=== PATIENT | female | born 1965 | race Caucasian/White ===

== ENCOUNTER 2020-05-21 16:29 | Outpatient (REF) | payer BC, SELFPAY ==
--- NOTE | 2020-05-21 | MM_ITS ---
EXAMINATION: MM SCREENING DIGITAL BREAST TOMOSYNTHESIS, BILATERAL CLINICAL INFORMATION: Screening. Asymptomatic. The lifetime risk of breast cancer based on the Tyrer-Cuzick Model is 14%. COMPARISON: Mammography: 05/16/2019, 05/13/2018, 05/04/2017, 04/12/2016 TECHNIQUE: Digital breast tomosynthesis is performed in both the craniocaudal and mediolateral oblique views along with computer-aided detection (CAD). Synthesized 2D images are generated from the tomosynthesis. FINDINGS: There are scattered areas of fibroglandular density (ACR BI-RADS breast composition Category b). There is fine fibronodular parenchymal pattern. Again, there are fibrocystic changes with 2 oval circumscribed masses central anterior medial left breast, the larger approximately 1.1 x 1.3 cm. There is no interval significant mass or architectural abnormality or abnormal calcifications. The axilla and skin contours are unremarkable. MM/MM tomosynthesis screening BI IMPRESSION: No significant changes from prior study. ASSESSMENT: BI-RADS 2: Benign RECOMMENDATION: Routine annual mammography screening. This patient's information was entered into a reminder system with a target due date for their next mammogram.
== END 2020-05-21 16:30 | disposition home or self-care (01) ==
LOC: HO.MAMMO 16:29
PROVIDERS: PCP Family Medicine; Visit Provider Family Medicine
DX: Z12.31 Encounter for screening mammogram for malignant neoplasm of breast (principal)
CPT/HCPCS: 77063; 77067

== ENCOUNTER 2021-01-04 14:13 | Outpatient (REF) | payer BC, SELFPAY ==
[2021-01-04 15:26] LABS: MANUAL DIFF FLAG NO
[2021-01-04 15:32] LABS: Basophils Absolute Auto 0.1 X10*3/uL (0.0-0.2); Basophils Percent Auto 1.2 % (0-2); Eosinophils Absolute Auto 0.1 X10*3/uL (0.0-0.4); Hematocrit 35.8 % (37-47); Hemoglobin 11.6 g/dl (12.0-16.0); Lymphocytes Absolute Auto 1.9 X10*3/uL (1.2-4.9); Lymphocytes Percent Auto 37.1 % (20-40); Mean Corpuscular HGB Conc 32.4 g/dl (31.0-35.0); Mean Corpuscular Hemoglobin 31.4 pg (27.0-33.0); Mean Corpuscular Volume 96.8 fL (80-98); Mean Platelet Volume 9.7 fL (9.4-12.3); Monocytes Absolute Auto 0.5 X10*3/uL (0.1-1.2); Neutrophils Absolute Auto 2.5 X10*3/uL (2.0-8.3); Neutrophils Percent Auto 50.7 % (45-73); Platelet Count 252 X10*3/uL (160-400); Red Cell Distribution Width 12.7 % (11.0-16.0)
[2021-01-04 15:59] LABS: Anion Gap 11 (12-20); Blood Urea Nitrogen 9 mg/dL (9-16); Calcium 9.3 mg/dL (8.4-10.2); Carbon Dioxide 27 mmol/L (22-29); Chloride 106 mmol/L (96-108); Estimated Glomerular Filt Rate > 60; Glucose Random 86 mg/dL (60-115); Potassium 3.9 mmol/L (3.3-5.1); Sodium 140 mmol/L (135-145)
[2021-01-04 16:04] LABS: Alanine Aminotransferase 8 U/L (0-31); Albumin Level 4.3 g/dL (3.5-5.0); Alkaline Phosphatase 72 U/L (39-117); Aspartate Amino Transferase 16 U/L (5-31); Bilirubin Direct 0.2 mg/dL (0.0-0.5); Bilirubin Total 0.5 mg/dL (0.0-1.0); Total Protein 6.8 g/dL (6.5-8.0)
[2021-01-04 16:25] LABS: Vitamin B12 277 pg/mL (200-900)
[2021-01-05 13:32] LABS: Lyme Abs Screen <0.90 index
[2021-01-05 14:21] LABS: Ceruloplasmin 28 mg/dL (18-53)
[2021-01-07 03:42] LABS: ~HepC Num1 0.37 S/CO (0.00-0.79); ~Hepatitis C Antibody Nonreactive (Nonreactive)
[2021-01-07 17:17] LABS: TS Negative Control Passed; TS Panel A 0; TS Panel B 0; TS Positive Control Passed; TSpotTB Negative (SeeBelow)
[2021-01-08 12:42] LABS: Anti Nuclear Antibody Screen NEGATIVE (NEGATIVE)
[2021-01-08 22:47] LABS: Angiotensin Converting Enzyme 21 U/L (9-67)
== END 2021-01-04 14:14 | disposition home or self-care (01) ==
LOC: HO.LAB 14:13
PROVIDERS: Absent Provider Psychiatry & Neurology Neurology; PCP Family Medicine; Visit Provider Family Medicine
DX: Z01.84 Encounter for antibody response examination (principal); Z11.59 Encounter for screening for other viral diseases; R20.0 Anesthesia of skin
CPT/HCPCS: 36415; 80048; 80076; 82164; 82390; 82607; 85025; 86038; 86039; 86481; 86617; 86618; 86787; 86803

== ENCOUNTER 2021-06-12 16:07 | Outpatient (REF) | payer BC, SELFPAY ==
[2021-06-12 16:50] LABS: MANUAL DIFF FLAG NO
[2021-06-12 17:49] LABS: Basophils Absolute Auto 0.1 X10*3/uL (0.0-0.2); Basophils Percent Auto 0.8 % (0-2); Eosinophils Absolute Auto 0.2 X10*3/uL (0.0-0.4); Eosinophils Percent Auto 2.3 % (0-4); Hematocrit 35.6 % (37.0-47.0); Hemoglobin 11.4 g/dl (12.0-16.0); Imm Gran Abs Auto 0.02 X10*3/uL (0.00-0.03); Imm Gran Pct Auto 0.3 % (0.0-0.4); Lymphocytes Absolute Auto 1.8 X10*3/uL (1.2-4.9); Mean Corpuscular Hemoglobin 31.1 pg (27.0-33.0); Mean Corpuscular Volume 97.3 fL (80.0-98.0); Mean Platelet Volume 10.4 fL (9.4-12.3); Monocytes Absolute Auto 0.5 X10*3/uL (0.1-1.2); Monocytes Percent Auto 7.1 % (2-11); Neutrophils Percent Auto 61.5 % (45-73); Platelet Count 248 X10*3/uL (160-400); Red Blood Count 3.66 X10*6/uL (4.20-5.50); Red Cell Distribution Width 11.9 % (11.0-16.0); White Blood Count 6.5 X10*3/uL (4.8-10.8)
[2021-06-12 18:13] LABS: Alanine Aminotransferase 10 U/L (0-31); Albumin Level 4.3 g/dL (3.5-5.0); Alkaline Phosphatase 61 U/L (39-117); Anion Gap 13 (12-20); Aspartate Amino Transferase 18 U/L (5-31); Bilirubin Total 0.3 mg/dL (0.0-1.0); Blood Urea Nitrogen 12 mg/dL (9-16); Calcium 9.1 mg/dL (8.4-10.2); Carbon Dioxide 26 mmol/L (22-29); Chloride 105 mmol/L (96-108); Estimated Glomerular Filt Rate > 60; Glucose Random 85 mg/dL (60-115); Sodium 140 mmol/L (135-145); Total Protein 6.6 g/dL (6.5-8.0)
[2021-06-12 18:34] LABS: Vitamin D 25-OH Total 40.4 ng/mL (>30)
[2021-06-12 18:45] LABS: Folate 14.3 ng/mL (> or = 4.0); Vitamin B12 256 pg/mL (200-900)
[2021-06-13 08:33] LABS: HBc Num1 0.08 S/CO (0.00-0.79); HBsAGNum1 0.17 S/CO (0.00-0.99); Hepatitis B Core Antibody Nonreactive (Nonreactive); Hepatitis B Surface Antigen Negative (Negative)
[2021-06-14 13:50] LABS: IgA 161 mg/dL (47-310); IgG 1005 mg/dL (600-1640); IgM 66 mg/dL (50-300)
[2021-06-14 15:25] LABS: Antibody to SS-A Antigen <1.0 NEG AI (<1.0 NEG); Antibody to SS-B Antigen <1.0 NEG AI (<1.0 NEG)
[2021-06-15 10:32] LABS: TS Negative Control Passed; TS Panel A 0; TS Panel B 0; TS Positive Control Passed; TSpotTB Negative (SeeBelow)
[2021-06-20 03:02] LABS: JCV Antibody POSITIVE
== END 2021-06-12 16:08 | disposition home or self-care (01) ==
LOC: HO.LAB 16:07
PROVIDERS: PCP Family Medicine; Visit Provider Student in an Organized Health Care Education/Training Program
DX: G35 Multiple sclerosis (principal); G37.9 Demyelinating disease of central nervous system, unspecified; Z79.899 Other long term (current) drug therapy
CPT/HCPCS: 36415; 80053; 82306; 82607; 82746; 82784; 85025; 86235; 86255; 86362; 86481; 86704; 86705; 86711; 86787; 87340

== ENCOUNTER 2021-06-17 16:06 | Outpatient (REF) | payer BC, SELFPAY ==
--- NOTE | ~2021-06-17 | MM_ITS ---
EXAMINATION: MM SCREENING DIGITAL BREAST TOMOSYNTHESIS, BILATERAL CLINICAL INFORMATION: Screening. Asymptomatic. Family history breast cancer, sister. The lifetime risk of breast cancer based on the Tyrer-Cuzick Model is 28%. COMPARISON: Mammography: 05/21/2020, 05/16/2019, 05/13/2018, 05/04/2017, 04/12/2016, 03/31/2015, 02/24/2014, 02/08/2013; left breast ultrasound 02/24/2014. TECHNIQUE: Digital breast tomosynthesis is performed in both the craniocaudal and mediolateral oblique views along with computer-aided detection (CAD). Synthesized 2D images are generated from the tomosynthesis. FINDINGS: There are scattered areas of fibroglandular density (ACR BI-RADS breast composition Category b). The left breast has chronic benign nodularity 9:00 periareolar, slightly decreased in size from remote prior exams. The more dominant nodule central 9:00 position 5 cm from nipple is similar in size to prior study. The posterior wall is ill-defined on tomography, possibly related to superimposed tissue. Patient will be recalled to further characterize. The remainder of the bilateral breasts appears stable from prior exams. There is no interval significant mass or architectural abnormality or abnormal calcifications. The axilla and skin contours are unremarkable. MM/MM tomosynthesis screening BI IMPRESSION: 1. Left: Nodule central 9:00 position 5 cm from nipple with ill-defined posterior wall on tomography. 2. Right: No mammographic evidence of malignancy. ASSESSMENT: BI-RADS 0: Incomplete - Need Additional Imaging Evaluation RECOMMENDATION: 1. Additional views of the left breast (spot CC, spot LM). 2. Targeted ultrasound left breast. 3. Radiology department staff will contact the patient for additional imaging. This patient's information was entered into a reminder system with a target due date for their next mammogram.
== END 2021-06-17 16:07 | disposition home or self-care (01) ==
LOC: HO.MAMMO 16:06
PROVIDERS: Visit Provider Family Medicine
DX: Z12.31 Encounter for screening mammogram for malignant neoplasm of breast (principal)
CPT/HCPCS: 77063; 77067

== ENCOUNTER 2021-06-20 10:55 | Outpatient (REF) | payer BC, SELFPAY ==
[2021-06-20 13:46] LABS: Influenza A PCR NEGATIVE (Negative); Influenza B PCR NEGATIVE (Negative); Resp Syncy Virus RNA Qual PCR NEGATIVE (Negative); SARS COV2 PCR INHOUSE NEGATIVE (Negative)
== END 2021-06-20 10:56 | disposition home or self-care (01) ==
LOC: HO.LAB 10:55
PROVIDERS: PCP Family Medicine; Visit Provider Family Medicine
DX: Z20.822 Contact with and (suspected) exposure to COVID-19 (principal); R05.9 Cough, unspecified
CPT/HCPCS: 0241U; C9803

== ENCOUNTER 2021-06-27 14:23 | Outpatient (REF) | payer BC, SELFPAY ==
--- NOTE | ~2021-06-27 | MM_ITS ---
EXAMINATION: MM DIAGNOSTIC DIGITAL BREAST TOMOSYNTHESIS, LEFT US DIAGNOSTIC ULTRASOUND BREAST, LEFT CLINICAL INFORMATION: Recall from screening for otherwise chronic nodule 9:00 position 5 cm from nipple with ill-defined posterior wall on tomography. Family history breast cancer, sister. TC score 28%. COMPARISON: Mammography: 05/21/2020 prior exams dating back to 2014 including left breast ultrasound 02/25/2020. TECHNIQUE: Digital breast tomosynthesis is performed. 2D images are generated from the tomosynthesis. The following views are obtained: Spot CC, spot LM x2. Ultrasound left breast is targeted to the medial breast. Patient is imaged supine and left posterior oblique. Grayscale imaging and color Doppler are performed without and with harmonics. FINDINGS: There are scattered areas of fibroglandular density (ACR BI-RADS breast composition Category b). The additional views shows the chronic smooth nodule anterior mid medial breast. No spiculation on additional views. Ultrasound demonstrates the nodule to measure 1.2 x 0.9 x 1.0 cm. Margins are smooth. There is geographic internal echogenicity within half of the nodule without associated color flow. The appearance is suggestive of a benign acorn cysts/apocrine metaplasia. There are 2 smaller acorn cysts periareolar medial left breast, the larger measures only 0.8 x 0.6 cm compared with prior ultrasound measurement 1.0 x 0.8 cm. The smaller is 0.5 x 0.4 cm. Results are discussed with the patient at time of visit. Findings are consistent with benign-appearing acorn cyst. Management plan is for short interval follow-up left breast ultrasound in 6 months. MM/MM tomosynthesis added views L IMPRESSION: Benign-appearing acorn cyst measuring 1.2 cm. No associated color flow. ASSESSMENT: BI-RADS 3: Probably Benign RECOMMENDATION: Ultrasound left breast in 6 months. This patient's information was entered into a reminder system with a target due date for their next mammogram.
== END 2021-06-27 14:24 | disposition home or self-care (01) ==
LOC: HO.MAMMO 14:23
PROVIDERS: Visit Provider Family Medicine
DX: N60.02 Solitary cyst of left breast (principal)
CPT/HCPCS: 76642; 77061; 77065

== ENCOUNTER 2021-12-25 13:48 | Outpatient (REF) | payer BC, SELFPAY ==
--- NOTE | ~2021-12-25 | US_ITS ---
EXAMINATION: US DIAGNOSTIC ULTRASOUND BREAST, LEFT CLINICAL INFORMATION: Follow-up chronic nodule 9:00 left breast with acorn cyst appearance on prior ultrasound. Family history breast cancer, sister. COMPARISON: Ultrasound left breast 06/27/2021, 02/24/2014. Mammography 06/27/2021 and prior mammography dating back to 02/16/2014. TECHNIQUE: Ultrasound left breast is targeted to the inner breast. Grayscale imaging and color Doppler are performed without and with harmonics. FINDINGS: The chronic nodule 9:00 position proximally 4-6 cm from nipple is similar in size and contour to prior ultrasound. Current measurements are 1.2 x 0.8 x 1.0 cm and prior ultrasound measurements 1.2 x 0.9 x 1.0 cm. There are some low-level internal echoes without associated peripheral or internal color flow. Margins are smooth. Difficult to perceive increased or decreased through transmission of sound. Appearance is suggestive of a foam cyst. Remote ultrasound 2013 shows simple cyst at this site measuring 1.0 x 0.7 cm. Smaller nodularity periareolar left breast is again seen under 6 mm. There is no interval architectural abnormality. Results are discussed with the patient at time of visit. US/US breast LT limited IMPRESSION: -Avascular nodule 9:00 position 4-6 cm from nipple stable in size, 1.2 cm. No color flow. ASSESSMENT: BI-RADS 3: Probably Benign RECOMMENDATION: Ultrasound left breast at time of bilateral annual diagnostic mammography, due in 6 months. This patient's information was entered into a reminder system with a target due date for their next mammogram.
== END 2021-12-25 13:49 | disposition home or self-care (01) ==
LOC: HO.MAMMO 13:48
PROVIDERS: PCP Family Medicine; Visit Provider Family Medicine
DX: N63.25 Unspecified lump in the left breast, overlapping quadrants (principal)
CPT/HCPCS: 76642

== ENCOUNTER 2022-01-03 11:46 | Outpatient (REF) | payer BC, SELFPAY ==
[2022-01-03 13:41] LABS: MANUAL DIFF FLAG NO
[2022-01-03 13:44] LABS: Basophils Percent Auto 0.5 % (0-2); Eosinophils Absolute Auto 0.2 X10*3/uL (0.0-0.4); Eosinophils Percent Auto 2.9 % (0-4); Hematocrit 38.7 % (37.0-47.0); Hemoglobin 12.6 g/dl (12.0-16.0); Imm Gran Abs Auto 0.02 X10*3/uL (0.00-0.03); Imm Gran Pct Auto 0.4 % (0.0-0.4); Lymphocytes Absolute Auto 1.4 X10*3/uL (1.2-4.9); Lymphocytes Percent Auto 26.3 % (20-40); Mean Corpuscular HGB Conc 32.6 g/dl (31.0-35.0); Mean Corpuscular Hemoglobin 31.2 pg (27.0-33.0); Mean Corpuscular Volume 95.8 fL (80.0-98.0); Mean Platelet Volume 9.9 fL (9.4-12.3); Monocytes Absolute Auto 0.5 X10*3/uL (0.1-1.2); Monocytes Percent Auto 8.2 % (2-11); Neutrophils Absolute Auto 3.4 x10*3/uL (2.0-8.3); Neutrophils Percent Auto 61.7 % (45-73); Platelet Count 278 X10*3/uL (160-400); Red Blood Count 4.04 X10*6/uL (4.20-5.50); Red Cell Distribution Width 12.6 % (11.0-16.0); White Blood Count 5.5 X10*3/uL (4.8-10.8)
[2022-01-03 14:24] LABS: Alanine Aminotransferase 12 U/L (0-31); Albumin Level 4.4 g/dL (3.5-5.0); Alkaline Phosphatase 69 U/L (39-117); Aspartate Amino Transferase 17 U/L (5-31); Bilirubin Direct 0.2 mg/dL (0.0-0.5); Bilirubin Total 0.4 mg/dL (0.0-1.0); Blood Urea Nitrogen 13 mg/dL (9-16); Estimated Glomerular Filt Rate > 60
[2022-01-03 14:38] LABS: Folate 13.9 ng/mL (> or = 4.0); Vitamin B12 730 pg/mL (200-900)
[2022-01-06 21:51] LABS: Transglutaminase Ab IgG <1.0 U/mL; Transglutaminase IgA 207.7 U/mL
== END 2022-01-03 11:47 | disposition home or self-care (01) ==
LOC: HO.10HDL 11:46
PROVIDERS: Absent Provider Family Medicine; Visit Provider Student in an Organized Health Care Education/Training Program
DX: R19.7 Diarrhea, unspecified (principal)
CPT/HCPCS: 36415; 80076; 82565; 82607; 82746; 84520; 85025; 86052; 86364

== ENCOUNTER 2022-04-11 12:37 | Outpatient (REF) | payer BC, SELFPAY ==
--- NOTE | ~2022-04-11 | XR_ITS ---
EXAMINATION: XR CHEST CLINICAL INFORMATION: Cough and SOB. COMPARISON: None TECHNIQUE: 2 views of the chest were obtained. FINDINGS: No significant abnormality is noted involving the heart, lungs, mediastinum, bony thorax or soft tissues. XR/XR chest 2V IMPRESSION: Unremarkable chest examination.
== END 2022-04-11 12:38 | disposition home or self-care (01) ==
LOC: HO.XRAY 12:37
PROVIDERS: PCP Family Medicine; Visit Provider Family Medicine
DX: R05.9 Cough, unspecified (principal); R06.02 Shortness of breath
CPT/HCPCS: 71046

== ENCOUNTER 2022-06-05 14:21 | Outpatient (REF) | payer BC, SELFPAY ==
--- NOTE | ~2022-06-05 | MM_ITS ---
EXAMINATION: MM DIAGNOSTIC DIGITAL BREAST TOMOSYNTHESIS, BILATERAL US DIAGNOSTIC ULTRASOUND BREAST, LEFT CLINICAL INFORMATION: Due for yearly. Also follow-up probable benign acorn cyst anterior central 9:00 left breast. Family history breast cancer, sister. TC score 25%. COMPARISON: Mammography: 06/27/2021, 06/17/2021 (BI-RADS 0), 05/21/2020, 05/16/2019, 05/13/2018; left breast ultrasound 12/25/2021 and 06/27/2021. TECHNIQUE: Digital breast tomosynthesis is performed in both the craniocaudal and mediolateral oblique views along with computer-aided detection (CAD). Synthesized 2D images are generated from the tomosynthesis. Ultrasound left breast is targeted to the central inner breast using grayscale imaging and color Doppler without and with harmonics. FINDINGS: There are scattered areas of fibroglandular density (ACR BI-RADS breast composition Category b). Parenchymal pattern is similar to prior exams. There is chronic nodule central anterior medial left breast. Smaller periareolar anterior medial cyst left breast is slightly decreased in size over time. There is no architectural abnormality or interval significant mass or abnormal calcifications. The axilla and skin contours are unremarkable. Ultrasound demonstrates stable acorn cyst 9:00 central anterior breast approximately 3 cm from nipple with overall dimensions approximately 1.3 x 0.8 x 1.0 cm similar to prior exams. Again, there is geographic internal avascular echogenicity. Outer margins are smooth and there is no associated color flow. The cyst will be reassessed again at time of annual bilateral mammography, due in 12 months, to conclude long-term surveillance. Results are discussed with the patient at time of visit. MM/MM tomosynthesis diagnostic BI IMPRESSION: -Mammography shows no significant changes from prior studies. -Ultrasound demonstrates stable benign-appearing foam cyst central anterior medial left breast. ASSESSMENT: BI-RADS 3: Probably Benign RECOMMENDATION: Diagnostic mammography and left breast ultrasound at time of next annual exam, due in 12 months. This patient's information was entered into a reminder system with a target due date for their next mammogram.
== END 2022-06-05 14:22 | disposition home or self-care (01) ==
LOC: HO.MAMMO 14:21
PROVIDERS: PCP Family Medicine; Visit Provider Family Medicine
DX: N63.25 Unspecified lump in the left breast, overlapping quadrants (principal)
CPT/HCPCS: 76642; 77062; 77066

== ENCOUNTER 2022-07-21 08:47 | Outpatient (REF) | payer BC, SELFPAY ==
[2022-07-21 11:06] LABS: MANUAL DIFF FLAG NO
[2022-07-21 11:17] LABS: Basophils Absolute Auto 0.1 X10*3/uL (0.0-0.2); Basophils Percent Auto 1.2 % (0-2); Eosinophils Absolute Auto 0.2 X10*3/uL (0.0-0.4); Eosinophils Percent Auto 5.6 % (0-4); Hematocrit 37.5 % (37.0-47.0); Hemoglobin 12.4 g/dl (12.0-16.0); Imm Gran Abs Auto 0.01 X10*3/uL (0.00-0.03); Imm Gran Pct Auto 0.2 % (0.0-0.4); Lymphocytes Absolute Auto 1.4 X10*3/uL (1.2-4.9); Lymphocytes Percent Auto 32.9 % (20-40); Mean Corpuscular HGB Conc 33.1 g/dl (31.0-35.0); Mean Corpuscular Hemoglobin 31.2 pg (27.0-33.0); Mean Corpuscular Volume 94.5 fL (80.0-98.0); Mean Platelet Volume 9.9 fL (9.4-12.3); Monocytes Absolute Auto 0.4 X10*3/uL (0.1-1.2); Monocytes Percent Auto 10.3 % (2-11); Neutrophils Absolute Auto 2.1 x10*3/uL (2.0-8.3); Neutrophils Percent Auto 49.8 % (45-73); Platelet Count 255 X10*3/uL (160-400); Red Blood Count 3.97 X10*6/uL (4.20-5.50); Red Cell Distribution Width 12.1 % (11.0-16.0); White Blood Count 4.3 X10*3/uL (4.8-10.8)
[2022-07-21 12:59] LABS: Alanine Aminotransferase 7 U/L (0-31); Albumin Level 4.2 g/dL (3.5-5.0); Alkaline Phosphatase 66 U/L (39-117); Aspartate Amino Transferase 15 U/L (5-31); Bilirubin Direct < 0.2 mg/dL (0.0-0.5); Bilirubin Total 0.3 mg/dL (0.0-1.0); Blood Urea Nitrogen 11 mg/dL (9-16); Estimated Glomerular Filt Rate > 60; Total Protein 6.4 g/dL (6.5-8.0)
[2022-07-21 13:03] LABS: Vitamin D 25-OH Total 39.5 ng/mL (>30)
[2022-07-21 13:40] LABS: Vitamin B12 411 pg/mL (200-900)
[2022-07-22 14:24] LABS: IgA 191 mg/dL (47-310); IgG 1095 mg/dL (600-1640); IgM 53 mg/dL (50-300)
== END 2022-07-21 08:48 | disposition home or self-care (01) ==
LOC: HO.10HDL 08:47
PROVIDERS: Absent Provider Physician Assistant; Visit Provider Student in an Organized Health Care Education/Training Program
DX: G35 Multiple sclerosis (principal); Z79.899 Other long term (current) drug therapy
CPT/HCPCS: 36415; 80076; 82306; 82565; 82607; 82784; 84520; 85025

== ENCOUNTER → 2023-03-27 14:49 | Outpatient (REF) | payer BC, SELFPAY | LOC: HO.CARD 14:49 | PROVIDERS: PCP Family Medicine; Visit Provider Family Medicine | DX: R00.2 Palpitations (principal) | CPT/HCPCS: 93242 ==

== ENCOUNTER 2023-05-06 16:29 | Outpatient (REF) | payer BC, SELFPAY ==
--- NOTE | ~2023-05-06 | XR_ITS ---
EXAMINATION: XR HIP, LEFT CLINICAL INFORMATION: Left hip trauma and fall COMPARISON: 05/29/2016 left hip TECHNIQUE: AP view of the pelvis and 2 views of the left hip. FINDINGS: The bones are diffusely demineralized. Moderate degenerative changes in the left hip with superior joint space narrowing and lateral acetabulum hypertrophic change. Moderate degenerative changes on single AP view of the right hip. Small pelvic calcifications are likely vascular. Moderate degenerative changes in the imaged lower lumbar spine. XR/XR hip LT w PEL1V IMPRESSION: Moderate degenerative changes in the left hip. The bones are diffusely demineralized, limiting evaluation. Dedicated MRI of the left hip recommended for further evaluation as MRI is much more sensitive for detection of fracture.
== END 2023-05-06 16:30 | disposition home or self-care (01) ==
LOC: HO.XRAY 16:29
PROVIDERS: PCP Family Medicine; Visit Provider Family Medicine
DX: S79.912D Unspecified injury of left hip, subsequent encounter (principal); Z91.81 History of falling
CPT/HCPCS: 73502

== ENCOUNTER 2023-06-09 14:58 | Outpatient (REF) | payer BC, SELFPAY ==
--- NOTE | ~2023-06-09 | US_ITS ---
EXAMINATION: MM DIAGNOSTIC DIGITAL BREAST TOMOSYNTHESIS, BILATERAL US BREAST LIMITED, LEFT MAMMOGRAPHY: CLINICAL INFORMATION: 1 year follow-up left breast nodule. COMPARISON: Mammography: 06/05/2022, 06/27/2021, 05/21/2020, dating back to 2017. TECHNIQUE: Digital breast tomosynthesis is performed in both the craniocaudal and mediolateral oblique views along with computer-aided detection (CAD). Synthesized 2D images are generated from the tomosynthesis. In addition, a full-field 3-D left ML view was also obtained. FINDINGS: There are scattered areas of fibroglandular density (ACR BI-RADS breast composition Category b). Within the anterior left breast, there are 3 stable circumscribed isodense masses in the slightly medial retroareolar region, the largest measuring 7 mm. More anterior measures approximately 6 mm and an immediately abutting more anterior mass measures 5 mm. These are likely cysts. These will be evaluated by ultrasound. Otherwise, there are no developing masses, regions of architectural distortion, skin changes, or suspicious calcifications in either breast. ULTRASOUND: CLINICAL INFORMATION: 1 year follow-up left breast nodules COMPARISON: 06/05/2022 left breast ultrasound. TECHNIQUE: Targeted sonographic evaluation was performed using a high frequency linear transducer. Attention was given to the circumscribed masses in the left anteromedial breast. Selected archived documentation. FINDINGS: LEFT BREAST: There is a simple cyst in the left breast, 9:00 axis, 3 cm from the nipple, measuring 7 x 7 x 6 cm, unchanged from prior and benign. There are 2 abutting simple cysts immediately more anterior just abutting the nipple, the larger more posterior measuring 6 mm and the smaller measuring 5 mm. These are benign, and account for the mammographic masses of concern. There are no suspicious sonographic changes in the left breast. US/US breast LT limited mamm only IMPRESSION: There are no findings suspicious for malignancy in either breast. Left breast demonstrates stable simple cysts in the anterior aspect. These are benign. Recommend the patient return to routine screening mammography. OVERALL ASSESSMENT: Mammography: BI-RADS 2 - Benign Findings Ultrasound: BI-RADS 2 - Benign Findings RECOMMENDATION: 1 year F/U Results were provided to the patient at time of visit by the technologist. This patient's information was entered into a reminder system with a target due date for their next mammogram.
== END 2023-06-09 14:59 | disposition home or self-care (01) ==
LOC: HO.MAMMO 14:58
PROVIDERS: PCP Family Medicine; Visit Provider Family Medicine
DX: N60.02 Solitary cyst of left breast (principal)
CPT/HCPCS: 76642; 77062; 77066

== ENCOUNTER → 2023-06-09 15:00 | Outpatient (BNV) | payer BC, SELFPAY | PROVIDERS: PCP Family Medicine; Visit Provider Radiology Diagnostic Radiology | DX: N63.20 Unspecified lump in the left breast, unspecified quadrant (principal) | CPT/HCPCS: 76642; 77062; 77066 ==

== ENCOUNTER 2023-07-09 14:27 | Outpatient (REF) | payer BC, SELFPAY ==
--- NOTE | ~2023-07-09 | MM_ITS ---
EXAMINATION: BONE DENSITOMETRY CLINICAL INDICATION: Unspecified menopausal and perimenopausal disorder. COMPARISON: This is the patient's baseline examination. TECHNIQUE: Using a [employer] DXA System (software version: 13.1) manufactured by [employer], dual-energy x-ray absorptiometry was performed of the lumbar spine and left hip. The images are of good technical quality. Summary results are attached. FINDINGS: LEFT FEMUR, NECK: BMD 1.026 g/cm2, Z-score 0.7, T-score -0.1, normal. LEFT FEMUR, TOTAL: BMD 0.931 g/cm2, Z-score -0.2, T-score -0.6, normal. AP SPINE L1-L4: BMD 1.080 g/cm2, Z-score -0.4, T-score -0.8, normal. IDENTIFIED RISK FACTORS: Family history (parent hip fracture), low calcium intake, menopause, secondary osteoporosis. HISTORY OF FRACTURE: None listed. MEDICATIONS: Vitamin D. MM/XR DEXA axial skeleton IMPRESSION: 1. DIAGNOSIS: Normal bone density based on the lowest T-score value of -0.8 in the lumbar spine applying World Health Organization criteria. 2. 10-YEAR FRACTURE RISK PREDICTION, FRAX: According to the guidelines, FRAX calculation should only be performed on patients in the osteopenia bone density category. Therefore, FRAX was not performed on this patient. 3. Treatment Recommendations: NOF guidelines recommend consideration for treatment in postmenopausal women and men age 50 and older presenting with the following: -A hip or vertebral (clinical or morphometric) fracture. -T-score less than or equal to -2.5 at the femoral neck or spine after appropriate evaluation to exclude secondary causes. -Low bone mass at the hip or spine and a 10-year fracture probability by FRAX of greater than or equal to 3% for hip fracture or greater than or equal to 20% for major osteoporotic fracture based on the [place] adapted WHO algorithm. 4. Other Recommendations: All treatment decisions require clinical judgment and consideration of individual patient factors, including patient preferences, comorbidities, previous drug use, risk factors not captured in the FRAX model (e.g. frailty, falls, vitamin D deficiency, increased bone turnover, interval significant decline in bone density) and possible under or overestimation of fracture risk by FRAX. FUTURE SCAN RECOMMENDATION: People with diagnosed cases of osteoporosis or at high risk for fracture should have regular bone mineral density tests. For patients eligible for Medicare, routine testing is allowed once every 2 years. The testing frequency can be increased to one year for patients who have rapidly progressing disease, those who are receiving or discontinuing medical therapy to restore bone mass, or have additional risk factors.
== END 2023-07-09 14:28 | disposition home or self-care (01) ==
LOC: HO.MAMMO 14:27
PROVIDERS: PCP Family Medicine; Visit Provider Family Medicine
DX: Z13.820 Encounter for screening for osteoporosis (principal); Z78.0 Asymptomatic menopausal state
CPT/HCPCS: 77080

== ENCOUNTER 2024-02-19 08:54 | Outpatient (AMB) | payer BC, SELFPAY ==
--- NOTE | 2024-02-19 09:00 | A.OFFVIS_ITS ---
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 Davis/ EKG changes Tdp Displays Analyst Required: No Accompanied by: Sister Allergies erythromycin base [ERYTHROMYCIN BASE] Allergy (Intermediate, Unverified 03/15/20 17:45) RASH BUTTERFLY SUTURES Allergy (Intermediate, Uncoded 03/15/20 17:45) BLISTERS e-mycin Allergy (Unknown, Uncoded 08/23/12 00:00) rash percocet Allergy (Unknown, Uncoded 08/23/12 00:00) vomiting steri strips Allergy (Unknown, Uncoded 08/23/12 00:00) blisters Medication List - Last Reconciled 02/19/24 by René Barakat MD baclofen mg PO metoprolol tartrate 25 mg PO BID ofatumumab (Kesimpta Pen) mg subcut HPI Comments Details: Thank you for referring Chelsea in cardiology consultation today for symptoms of palpitations and shortness of breath. She is a pleasant 58-year-old woman who has relapsing/remitting multiple sclerosis currently on Kesimpta therapy since July of 2023 being managed by [facility]. Patient says that she has transverse myelitis and was diagnose after having numbness in both her arms. She has no brain lesions. Over the last several months she has also had increasing symptoms of numbness in both her feet. She said symptoms of this rapid heart rate started last year and more recently have significantly increased. She was also about 3 months ago diagnose with celiac disease and then she has modified her diet significantly. She said her diet as becomes significantly salt deficient compared to before where she used to eat a lot of prepared meals with salt. She has been having symptoms of palpitation says with minimal exertion mostly in upright position where she notices heart races and then she gets short of breath. She has no associated chest pain. Symptoms happen with day-to-day activity such as washing dishes or folding laundry. She is very limited with her symptoms and activity. She was referred here because a day ago was seen in your office where she complain of these symptoms and EKG was done which was concerning and she was referred here for further evaluation. She was prescribed metoprolol, she did not take her metoprolol this morning. She comes in as noted to be tachycardia with heart rate of 110 beats per minute. With standing up heart rate goes up to 130 beats per minute. EKG shows sinus tachycardia with diffuse ST T wave changes in inferior and anterolateral leads. She was referred here for further management. She says she drinks about 70 oz of fluid every day. There is no recent blood work. [facility] Family History Father Stented coronary artery Atrial fibrillation and flutter Social History Alcohol intake: current Alcohol intake frequency: holidays/special occasions only Patient Tobacco Use Status: Never used Tobacco Review of Systems Const Denies chills, Denies fatigue, Denies fever(s), Denies frequent falls, Denies weakness, Denies weight gain and Denies weight loss ENT Denies dizziness Card Denies chest pain, Denies leg edema, Denies lightheadedness, Denies palpitations, Denies dyspnea and Denies dyspnea on exertion Resp Denies cough, Denies dyspnea and Denies dyspnea on exertion GI Denies hematochezia Musc Denies abnormal gait, Denies muscle weakness, Denies numbness, Denies radiating pain into limb and Denies tingling Neuro Denies abnormal gait, Denies dizziness, Denies frequent falls, Denies numbness, Denies tingling and Denies weakness Endo Denies fatigue and Denies palpitations Physical Exam Vital Signs: Last Vital Signs Pulse 129 H 02/19/24 09:48 BP 108/62 02/19/24 09:48 BMI result Body Mass Index 23.4 Const General: cooperative, comfortable, no acute distress, well developed, alert, awake and anxious Nutritional Appearance: well nourished and thin Orientation/consciousness: patient oriented x3 Limitations: no limitations HEENT Head: Yes normocephalic and Yes atraumatic Neck Neck: Yes trachea midline, Yes supple and Yes no JVD Resp Effort & Inspection: normal respiratory effort Auscultation: clear to auscultation bilaterally Cardio Jugular venous distension: no JVD Palpation: normal PMI Rate: tachycardic Rhythm: regular rhythm Heart sounds: S1 normal heart sound present, S2 normal heart sound present, no click, no gallops, no murmurs and no rubs Bruits: no carotid bruits GI Auscultation: normal bowel sounds Skin General skin exam: no rashes or lesions noted Neuro General: patient oriented x3 and no focal motor deficits Extrem General: Yes no clubbing, cyanosis or edema Psych Affect: Anxious affect present Office Procedures EKG Details: EKG shows sinus tachycardia with rightward axis with diffuse ST T wave changes [id number], Complete Assessment & Plan Assessment & Plan (1) Tachycardia: Code(s): R00.0 - Tachycardia, unspecified Category: Medical Plan: Patient with tachycardia which to me appears to be postural orthostatic tachycardia syndrome most likely related to her underlying multiple sclerosis. Nature of postural orthostatic tachycardia syndrome related to autonomic dysfunction was discussed. Mechanism of this was discussed in details. It might have been exacerbated in recent time because of her reduce salt intake as well as significantly heart and humid weather which may have made her restrictive lead dehydrated and hypovolemic. She is drinking adequate amount of water intake I have strongly recommended to liberalize her salt intake. I think this should help her with lot of other symptoms. For now we can continue metoprolol but in the long run she may need more therapy directed towards correcting autonomic dysfunction either by volume expanded such as fludrocortisone and/or vasoconstrictors such as midodrine. If she continues to have tachycardia symptoms may benefit from Corlanor therapy as well. Would suggest a tilt-table test to further assess for her hemodynamic response. Also suggest a thigh length compression stockings. Orthostatic precautions and interventions were discussed with her. She showed understanding. Will reach out to her primary neurologist to discuss this further. We also discussed about autonomic dysfunction consortium throughout the country. (2) SOB (shortness of breath): Code(s): R06.02 - Shortness of breath Category: Medical Plan: Shortness of breath with tachycardia most likely probably related to tachycardia. Although she has abnormal EKG. Will check blood work as well as D-dimers. Will check given her abnormal EKG and family history to rule out obstructive coronary artery disease vasodilating myocardial perfusion imaging. Will also suggest echocardiogram to evaluate LV systolic and diastolic function to evaluate for pulmonary hypertension. These tests will be scheduled in near future. Further treatment based on the findings of the test results. 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 Orders: Orders TSH reflex Free T4 Today R00.0 - Tachycardia, unspecified Metanephrines, Plasma Today R00.0 - Tachycardia, unspecified CA echo transthoracic complete Today R06.02 - Shortness of breath CA lexiscan stress w ani Today R06.02 - Shortness of breath Complete Blood Count Auto Diff Today R00.0 - Tachycardia, unspecified Basic Metabolic Panel Today R00.0 - Tachycardia, unspecified D Dimer High Sensitivity Today R00.0 - Tachycardia, unspecified Coding Level of Care Code New Pt Level 4 (68809) Diagnoses Tachycardia R00.0 SOB (shortness of breath) R06.02 CPT Codes EKG - CPT: 15982-[id number], Complete ([id number])
[2024-02-19 09:04] VITALS: BP 110/64; PULSE 110; BMI 23.4
[2024-02-19 09:48] VITALS: BP 108/62; BP 112/60; BP 125/74; PULSE 113; PULSE 120; PULSE 129
== END 2024-02-19 09:44 | disposition home or self-care (01) ==
PROVIDERS: PCP Family Medicine; Visit Provider Internal Medicine Cardiovascular Disease
DX: R00.0 Tachycardia, unspecified (principal); R06.02 Shortness of breath
CPT/HCPCS: 93010; 99204

== ENCOUNTER → 2024-02-19 08:54 | Outpatient (BNVA) | payer BC, SELFPAY | PROVIDERS: PCP Family Medicine; Visit Provider Internal Medicine Cardiovascular Disease | DX: R00.0 Tachycardia, unspecified (principal); R06.02 Shortness of breath | CPT/HCPCS: 93005 ==

== ENCOUNTER → 2024-03-22 12:36 | Outpatient (REF) | payer BC, SELFPAY ==
--- NOTE | 2024-03-22 12:41 | CA_ITS ---
Transthoracic Echocardiogram Patient (Last, First, Middle): Urvashi Martinez, Gender: Female Date of : 1965 Age: 58 Procedure Date: 03/22/2024 Procedure Type: Transthoracic Echocardiogram Location: OP Height: 167.64 cm Weight: 67.13 kg BSA: 1.76 m2 Heart Rate: bpm BP: 116 / 78 mmHg Staff Forester: TO Referring MD: René Barakat MD Symptoms: R06.02 - Shortness of breath Study Quality: Adequate Conclusions: - The left ventricular systolic function is normal. The calculated ejection fraction is 61% by biplane method. - Possible basal inferolateral hypokinesis in some views. - No obvious valvular pathology seen on this study. - The inferior vena cava is mildly dilated and collapses greater than 50% with inspiration. Findings Left Ventricle Normal left ventricular cavity size. There is normal left ventricular wall thickness. The left ventricular systolic function is normal. The calculated ejection fraction is 61% by biplane method. Diastolic function is normal for age. Possible basal inferolateral hypokinesis in some views. LV peak GLS 24.4%, possible overestimate. Right Ventricle Normal right ventricular cavity size and systolic function. Atria Both atria are normal in size. Aortic Valve There is a normal trileaflet aortic valve. There is no aortic valve stenosis. There is no aortic valve regurgitation. Mitral Valve The mitral valve appears normal. There is no mitral valve regurgitation. There is no mitral valve stenosis. Pulmonic Valve The pulmonic valve is likely normal. Tricuspid Valve Normal tricuspid valve structure. There is trace tricuspid valve regurgitation. There is no evidence of pulmonary hypertension. Great Vessels The asc aorta is normal in size. Venous The inferior vena cava is mildly dilated and collapses greater than 50% with inspiration. Pericardium/Pleural There is no evidence of pericardial effusion. Prior Study Comparison No prior study available for comparison. Recommendations, Care & Conclusions No obvious valvular pathology seen on this study. Measurements 2D Linear Measurements IVSd: 0.86 0.6-0.9/0.6-1.0 cm LVIDd: 4.66 3.9-5.3/4.2-5.9 cm LVIDd Index: 2.65 2.4-3.2/2.2-3.1 cm/m2 LVIDs: 3.33 2.0-3.6 cm LVPWd: 0.81 0.7-1.1 cm LA Diam: 2.50 2.7-3.8/3.0-4.0 cm LAIDs Index: 1.42 1.5-2.3 cm/m2 LV Mass: 157.91 67-162/88-224 g LV Mass Index: 89.72 43-95/49-115 g/m2 LVOT Diam: 2.30 3.0+(-)1.3 cm 2D Systolic Function EF 4C: 56.80 >55% EF 2C: 62.90 >55% EF BiP: 61.10 >55% Mitral Valve MV Pk E: 0.79 MV PK A: 0.54 MV Decel Time: 227.00 E/A: 1.50 E'Lateral: 11.20 E'Medial: 9.46 E/E' Med: 8.30 E/E' Lat: 7.00 PHT: 66.00 MVA PHT: 3.33 Decel Glenn: 3.48 Aortic Valve AoV Pk Aleks: 1.26 AoV Mn Aleks: 0.88 AoV VTI: 0.30 AoV Pk Grad: 6.00 Aov Mn Grad: 3.00 HOSSEIN Cont.VTI: 2.90 LVOT LVOT Pk Aleks: 1.03 LVOT Mn Aleks: 0.59 LVOT VTI: 0.21 LVOT Pk Grad: 4.00 LVOT Mn Grad: 2.00 LVOT Diam: 2.30 LVOT Area: 4.15 Diastolic Function MV Pk E: 0.79 MV Pk A: 0.54 E/A: 1.50 E'Medial: 9.46 E/E' Med: 8.30 E' Laterial: 11.20 E/E' Lat: 7.00 Right Ventricle TAPSE (mm): 17.20 TVS' Aleks: 11.10 Tricuspid Valve RA Press: 8.00 Great Vessels Aorta Sinus of Valsalva: 3.58 2.0-3.5 cm Ao Asc: 3.30 2.1-3.4 cm Updated in Other Vendor System with Status of Final Wyatt Crawley MD electronically signed on 03/24/2024 9:58:36 AM with status of Final
[2024-03-22 12:48] LABS: MANUAL DIFF FLAG NO
[2024-03-22 12:53] LABS: Basophils Absolute Auto 0.1 X10*3/uL (0.0-0.2); Basophils Percent Auto 1.1 % (0-2); Eosinophils Absolute Auto 0.1 X10*3/uL (0.0-0.4); Eosinophils Percent Auto 2.1 % (0-4); Hematocrit 38.7 % (37.0-47.0); Hemoglobin 12.9 g/dl (12.0-16.0); Imm Gran Abs Auto 0.01 X10*3/uL (0.00-0.03); Imm Gran Pct Auto 0.2 % (0.0-0.4); Lymphocytes Absolute Auto 1.6 X10*3/uL (1.2-4.9); Lymphocytes Percent Auto 34.3 % (20-40); Mean Corpuscular HGB Conc 33.3 g/dl (31.0-35.0); Mean Corpuscular Hemoglobin 31.8 pg (27.0-33.0); Mean Corpuscular Volume 95.3 fL (80.0-98.0); Mean Platelet Volume 9.7 fL (9.4-12.3); Monocytes Absolute Auto 0.5 X10*3/uL (0.1-1.2); Monocytes Percent Auto 11.3 % (2-11); Neutrophils Absolute Auto 2.4 x10*3/uL (2.0-8.3); Platelet Count 241 X10*3/uL (160-400); Red Blood Count 4.06 X10*6/uL (4.20-5.50); Red Cell Distribution Width 12.2 % (11.0-16.0); White Blood Count 4.7 X10*3/uL (4.8-10.8)
[2024-03-22 13:01] LABS: D Dimer High Sensitivity < 150 NG/ML
[2024-03-22 13:25] LABS: Anion Gap 7 (12-20); Blood Urea Nitrogen 10 mg/dL (9-16); Calcium 9.2 mg/dL (8.4-10.2); Carbon Dioxide 31 mmol/L (22-29); Chloride 105 mmol/L (96-108); Estimated Glomerular Filt Rate > 60; Glucose Random 111 mg/dL (60-115); Potassium 3.7 mmol/L (3.3-5.1); Sodium 139 mmol/L (135-145)
[2024-03-22 13:42] LABS: TSH reflex Free T4 2.74 uIU/mL (0.32-4.0)
[2024-03-26 07:14] LABS: Metanephrine, Free 69 pg/mL (<=57); Normetanephrines, Free 177 pg/mL (<=148); Total Metanephrine, Free 246 pg/mL (<=205)
== END ==
LOC: HO.CARD 12:36
PROVIDERS: PCP Family Medicine; Visit Provider Internal Medicine Cardiovascular Disease
DX: R06.02 Shortness of breath (principal); R00.0 Tachycardia, unspecified
CPT/HCPCS: 36415; 80048; 83835; 84443; 85025; 85379; 93306; 93356

== ENCOUNTER → 2024-03-22 12:41 | Outpatient (BNV) | payer BC, SELFPAY | PROVIDERS: PCP Family Medicine; Visit Provider Internal Medicine | DX: R06.02 Shortness of breath (principal); R93.1 Abnormal findings on diagnostic imaging of heart and coronary circulation | CPT/HCPCS: 93306; 93356 ==

== ENCOUNTER → 2024-03-31 07:47 | Outpatient (REF) | payer BC, SELFPAY ==
--- NOTE | ~2024-03-31 | NM_ITS ---
Lexiscan Myocardial perfusion study Indication: Shortness of breath to evaluate for myocardial ischemia Technique: The patient was brought in for a Lexiscan perfusion study on 03/30/2024 and was injected 0.4 mg of Lexiscan intravenously. Within a minute of this injection 25 mCi of sestamibi was given intravenously. Images were obtained using the SPECT gamma camera interlaced with the gating device. Images were obtained in supine position. Resting perfusion study was performed on 03/31/2024. Patient was administered 25 mCi of sestamibi intravenously at rest. Images were then obtained in supine position. Images obtained without without CT attenuation. Total DLP 92 mGy-cm. Images were processed with the software and compared side to side in short axis, horizontal long axis and vertical long axis views. Findings: The stress perfusion study showed both nonattenuated as well as attenuated corrected images show normal uptake of radiotracer in all segments of the LV myocardium. The gated study shows normal LV systolic function with calculated LVEF of 62%. LV cavity is normal in size. The gated study shows normal systolic wall thickening and contraction of segments. Resting study shows nonattenuated images show normal uptake ordered images in all segments of the LV myocardium. Gating at rest reveals normal systolic wall motion with ejection fraction at 63%. The findings are consistent with normal myocardial perfusion. NM/NM ani perf SPECT rest & str Impression: 1. Myocardial perfusion imaging study shows normal myocardial perfusion 2. Gated LVEF is 62% 3. Transient ischemic dilatation not present Nondiagnostic changes on EKG. Electronically signed by: René Barakat MD 04/01/2024 01:34 PM EDT
--- NOTE | 2024-03-31 07:53 | CA_ITS ---
Acquisition Time: 2024-03-31 07:47:44 Total Exercise Time: 00:02:00 Test Indications: ABN EKG, SOB Medications: SEE H Protocol: LEXISCAN Max HR: 131 BPM 79% of Pred: 164 BPM Max BP: 128/078 mmHG Max Work Load: 1.0 METS Pharmacological stress test with Lexiscan injection while sitting and kicking her legs, with chest tightness, with mild SOB, with mild dizziness, without arrhythmias, with normotensive response to injection, with nondiagnositic EKGs.Aminophylline 75mg IVP given tor everse Lexiscan. Dizziness, chest tghtness, and SOB resolved post Aminophylline. Nuclear images pending. Test reviewed with Dr Gastelum Referred By: René Barakat Overread By: Merna Torres
== END ==
LOC: HO.CARD 07:47
PROVIDERS: PCP Family Medicine; Visit Provider Internal Medicine Cardiovascular Disease
DX: R06.02 Shortness of breath (principal)
CPT/HCPCS: 78452; 93017; A9500; J0280; J2785

== ENCOUNTER → 2024-03-31 07:53 | Outpatient (BNV) | payer BC, SELFPAY | PROVIDERS: PCP Family Medicine; Visit Provider Nurse Practitioner | DX: R06.02 Shortness of breath (principal) | CPT/HCPCS: 78452; 93016; 93018 ==

== ENCOUNTER 2024-04-04 14:14 | Outpatient (AMB) | payer BC, SELFPAY ==
[2024-04-04 14:20] VITALS: BP 102/70; PULSE 75; BMI 22.8
--- NOTE | 2024-04-04 14:20 | MHC.OFFVIS ---
Vital Signs 04/04/24 14:20 Height 5 ft 6 in Weight 141 lb 1.533 oz BMI 22.8 BP 102/70 Blood Pressure Location Lt brachial Position Sitting Pulse 75 Pulse Source Pulse Oximeter Intake Visit Reasons: f/u after testing Allergies erythromycin base [ERYTHROMYCIN BASE] Allergy (Intermediate, Unverified 04/04/24 14:23) RASH BUTTERFLY SUTURES Allergy (Intermediate, Uncoded 04/04/24 14:23) BLISTERS e-mycin Allergy (Unknown, Uncoded 04/04/24 14:23) rash percocet Allergy (Unknown, Uncoded 04/04/24 14:23) vomiting steri strips Allergy (Unknown, Uncoded 04/04/24 14:23) blisters Medication List - Last Reconciled 04/04/24 by SARA SwartzC metoprolol tartrate 25 mg PO BID ofatumumab (Kesimpta Pen) mg subcut HPI HPI f/u after testing: Details: Urvashi is a 58-year-old female with past medical history of multiple sclerosis who was recently seen in cardiology consultation for symptoms of heart palpitations, tachycardia and shortness of breath. She reported heart palpitations and shortness of breath with minimal activity and being in an upright position. She was thought to have POTS and was started on metoprolol. She underwent a tilt-table test, echocardiogram and nuclear stress test and now presents for follow-up. Today she reports that her heart palpitations have improved some with the addition of metoprolol. She continues to have shortness of breath with physical activity. No PND, orthopnea. No lightheadedness, presyncope, syncope, falls. No chest discomfort at rest or with activity. She has been increasing her fluid and salt intake. This has caused significant swelling in her lower legs, right greater than left. She does have an underlying issue with lymphedema and the fluid and salt has worsened this problem. She does wear compression stockings when able. Her activity is limited by her multiple sclerosis. She has some weakness in her right upper leg. 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 She does not engage in much exertional activity. Mother is present. [facility] Family History Father Stented coronary artery Atrial fibrillation and flutter Social History Alcohol intake: current Alcohol intake frequency: holidays/special occasions only Patient Tobacco Use Status: Never used Tobacco Review of Systems Const All systems reviewed & are unremarkable except as noted in HPI and below ENT Denies dizziness Card Denies chest pain, Denies chest pain at rest, Denies chest pain with activity, Reports rapid heart rate, Denies pedal edema, Denies edema, Reports leg edema, Denies lightheadedness, Denies palpitations, Reports dyspnea, Reports dyspnea on exertion and Denies orthopnea Resp Denies cough, Reports dyspnea and Reports dyspnea on exertion GI Denies hematochezia and Denies change in stool character Musc Denies abnormal gait, Denies limited range of motion, Denies muscle cramps, Reports muscle weakness (right upper leg), Denies numbness, Denies radiating pain into limb, Denies stiffness and Denies tingling Neuro Denies abnormal gait, Denies dizziness, Denies numbness and Denies tingling Endo Denies palpitations Physical Exam Vital Signs: Last Vital Signs Pulse 75 04/04/24 14:20 BP 102/70 04/04/24 14:20 BMI result Body Mass Index 22.8 Const General: cooperative, healthy appearing, comfortable and no acute distress Orientation/consciousness: patient oriented x3 Neck Neck: Yes normal visual inspection Resp Effort & Inspection: normal respiratory effort Auscultation: clear to auscultation bilaterally, no rales, no rhonchi and no wheezes Cardio Rate: regular rate Rhythm: regular rhythm Heart sounds: S1 normal heart sound present, S2 normal heart sound present, no murmurs and no rubs Skin General skin exam: no rashes or lesions noted Neuro General: patient oriented x3 Extrem Other: soft edema each lower leg, right > Left. Psych Appearance: grossly normal Mental Status: mental status grossly normal Speech and movement: Normal speech and movement present Assessment & Plan Assessment & Plan (1) Tachycardia: Code(s): R00.0 - Tachycardia, unspecified Category: Medical Plan: Reports of heart palpitations, rapid heartbeats with minimal activity and being in an upright position. She has a history of multiple sclerosis and may have some autonomic dysfunction. She was thought to have POTS as this diagnosis fit her symptoms and vital signs as noted last visit. She was started on metoprolol tartrate 25 mg b.i.d. She was instructed to increase her fluid and salt intake. She did undergo a tilt-table test on 02/23/2024 which concludes orthostatic hypotension and dehydration. She recalls taking a half dose of metoprolol that day. She says on the metoprolol her palpitations have improved some. She had an echocardiogram on 03/22/2024 showing EF 61%, possible basal and inferior lateral hypokinesis, no valve abnormalities. A nuclear stress test was done on 03/31/2024 showing normal myocardial perfusion imaging. Test results reviewed with her in detail. Discussed probable diagnosis of POTS even though it was not noted at tilt-table test. She has developed edema in her lower legs from the increase salt and fluid intake. At this time she will need to reduce her salt and fluids proportionally so that her edema lessens. Instructed to maintain good hydration with at least 64 oz of fluid daily. I gave her 2 pairs of compression stockings from our office stock. Instructed on their use. Discussed leg elevation when sitting. Continue with metoprolol, will change to XL at her request. Increase physical activity as able. Cardiology office visit in 4 months to reassess symptoms and treatment plan. She expresses some frustration that an official diagnosis has been difficult to obtain. She tells me she has been having issues with her elevated heart rate for over a year. (2) SOB (shortness of breath): Code(s): R06.02 - Shortness of breath Category: Medical Plan: Cardiac testing as above. Her shortness of breath may be related to physical deconditioning. She does not appear fluid overloaded on exam. Her nuclear stress test was normal. (3) Edema: Code(s): R60.9 - Edema, unspecified Category: Medical Plan: As above. Plan Time spent on chart review, documentation, interview and assessment Medications: New metoprolol succinate ER Changing from tartrate to XL 50 mg PO DAILY 90 tabs 1RF Coding Level of Care Code Est Pt Level 4 (30372) Complex EM visit Add On G2211 Diagnoses Tachycardia R00.0 SOB (shortness of breath) R06.02 Edema R60.9 Time Spent (min) 30
== END 2024-04-04 15:06 | disposition home or self-care (01) ==
PROVIDERS: PCP Family Medicine; Visit Provider Nurse Practitioner Family
DX: R00.0 Tachycardia, unspecified (principal); R06.02 Shortness of breath; R60.9 Edema, unspecified
CPT/HCPCS: 99214

== ENCOUNTER → 2024-04-04 14:14 | Outpatient (BNVA) | payer BC, SELFPAY | PROVIDERS: PCP Family Medicine; Visit Provider Nurse Practitioner Family ==

== ENCOUNTER 2024-04-04 14:50 | Outpatient (REF) | payer BC, SELFPAY ==
[2024-04-08 21:53] LABS: Metanephrine, Free 24U 99 mcg/24 h (90-315); Normetanephrine, Free 24U 187 mcg/24 h (122-676); Total Metanephrine, Free 24U 286 mcg/24 h (224-832); Total Volume 24U 1050 mL
== END 2024-04-04 14:51 | disposition home or self-care (01) ==
LOC: HO.LNP 14:50
PROVIDERS: Visit Provider Internal Medicine Cardiovascular Disease
DX: R06.02 Shortness of breath (principal); R00.0 Tachycardia, unspecified
CPT/HCPCS: 83835

== ENCOUNTER 2024-06-02 09:55 | Outpatient (REF) | payer BC, SELFPAY ==
[2024-06-02 11:10] LABS: MANUAL DIFF FLAG NO
[2024-06-02 11:18] LABS: Basophils Absolute Auto 0.1 X10*3/uL (0.0-0.2); Basophils Percent Auto 1.2 % (0-2); Eosinophils Absolute Auto 0.1 X10*3/uL (0.0-0.4); Eosinophils Percent Auto 2.9 % (0-4); Hematocrit 35.9 % (37.0-47.0); Hemoglobin 11.8 g/dl (12.0-16.0); Imm Gran Abs Auto 0.01 X10*3/uL (0.00-0.03); Imm Gran Pct Auto 0.2 % (0.0-0.4); Lymphocytes Absolute Auto 1.4 X10*3/uL (1.2-4.9); Lymphocytes Percent Auto 34.1 % (20-40); Mean Corpuscular HGB Conc 32.9 g/dl (31.0-35.0); Mean Corpuscular Hemoglobin 31.9 pg (27.0-33.0); Mean Platelet Volume 10.2 fL (9.4-12.3); Monocytes Absolute Auto 0.4 X10*3/uL (0.1-1.2); Monocytes Percent Auto 9.2 % (2-11); Neutrophils Absolute Auto 2.2 x10*3/uL (2.0-8.3); Neutrophils Percent Auto 52.4 % (45-73); Platelet Count 255 X10*3/uL (160-400); Red Cell Distribution Width 12.7 % (11.0-16.0); White Blood Count 4.1 X10*3/uL (4.8-10.8)
[2024-06-02 12:26] LABS: Estimated Glomerular Filt Rate > 60
[2024-06-02 12:27] LABS: Alanine Aminotransferase 13 U/L (0-31); Albumin Level 4.1 g/dL (3.5-5.0); Alkaline Phosphatase 57 U/L (39-117); Aspartate Amino Transferase 20 U/L (5-31); Bilirubin Direct 0.2 mg/dL (0.0-0.5); Bilirubin Total 0.5 mg/dL (0.0-1.0); Iron 110 mcg/dL (30-160); Percent Iron Saturation 45 % (15-50); Total Iron Binding Capacity 247 mcg/dL (228-428); Total Protein 6.5 g/dL (6.5-8.0); Unsaturated Iron Binding 137 ug/dL
[2024-06-02 12:43] LABS: Ferritin 329 ng/mL (10-250); TSH reflex Free T4 2.84 uIU/mL (0.32-4.0)
[2024-06-02 12:47] LABS: Vitamin D 25-OH Total 40.7 ng/mL (>30)
[2024-06-02 12:49] LABS: Vitamin B12 410 pg/mL (200-900)
[2024-06-03 23:38] LABS: Immunoglobulin A 178 mg/dL (47-310)
[2024-06-04 00:43] LABS: IgA 183 mg/dL (47-310); IgG 1012 mg/dL (600-1640); IgM 53 mg/dL (50-300)
[2024-06-06 18:59] LABS: Gliadin Deamidated IgA Ab 13.1 U/mL; Gliadin Deamidated IgG Ab 4.5 U/mL; Transglutaminase Ab IgG <1.0 U/mL; Transglutaminase IgA 20.2 U/mL
[2024-06-07 22:39] LABS: Endomysial IgA Antibody Negative (Negative)
--- OUTSIDE RECORDS SUMMARY | 2024-06-08 01:25 | XMS_ITS ---
Author Name [facility] Organization Unknown History of Medication Use Medication Directions Dispensed Refills Start Date End Date Stat Ofatumumab (Kesimpta) 20 MG/0.4ML SOAJ Inject 20 mg as directed every 28 days. 01/27/2024 active Cobalamin Combinations (B-12) 100-5000 MCG SUBL 12/08/2023 active ergocalciferol (VITAMIN D2) capsule 55544 units TAKE 1 CAPSULE BY MOUTH ONE TIME PER WEEK 12/08/2023 active tiZANidine (ZANAFLEX) 2 MG capsule 1 po hs 12/08/2023 active Kesimpta 20 MG/0.4ML SOAJ INJECT 1 PEN UNDER THE SKIN EVERY 28 DAYS 12/08/2023 active Problems Problem Status Onset Date Problem Type Date of Resoluti on Source Multiple sclerosis (HCC) active EncounterDiagnosisAct CTTHNE MG
== END 2024-06-02 09:56 | disposition home or self-care (01) ==
LOC: HO.10HDL 09:55
PROVIDERS: Referring Provider Student in an Organized Health Care Education/Training Program; Visit Provider Internal Medicine
DX: K90.0 Celiac disease (principal); R53.83 Other fatigue
CPT/HCPCS: 36415; 80076; 82306; 82565; 82607; 82728; 82784; 83540; 84443; 85025; 86231; 86258; 86364

== ENCOUNTER 2024-06-13 15:57 | Outpatient (REF) | payer BC, SELFPAY | END 2024-06-13 15:58 | disposition home or self-care (01) | LOC: HO.MAMMO 15:57 | PROVIDERS: PCP Family Medicine; Visit Provider Family Medicine | DX: Z12.31 Encounter for screening mammogram for malignant neoplasm of breast (principal) | CPT/HCPCS: 77063; 77067 ==

== ENCOUNTER → 2024-06-13 16:00 | Outpatient (BNV) | payer BC, SELFPAY | PROVIDERS: PCP Family Medicine; Visit Provider Internal Medicine | DX: Z12.31 Encounter for screening mammogram for malignant neoplasm of breast (principal) | CPT/HCPCS: 77063; 77067 ==

== ENCOUNTER 2024-06-14 08:48 | Outpatient (REF) | payer BC, SELFPAY ==
--- NOTE | 2024-06-14 08:53 | PFT_ITS ---
Flows: FEV1: 109 % of predicted at 3.01 L FVC: 111 % of predicted at 3.89 L FEV1/FVC: 77 % Bronchodilator response: Present in small to medium airways only Volumes: Total lung capacity: 118 % of predicted at 6.50 L Residual volume: 156 % of predicted at 2.74 L Slow vital capacity: 100 % of predicted at 3.76 L Expiratory reserve volume: 130 % of predicted at 1.28 L Diffusion capacity: Normal Impression: No obstructive or restrictive ventilatory defect. Bronchodilator response is present in small to medium airways only. Increased residual volume suggests air trapping. MTDD
[2024-06-14 11:03] VITALS: PULSE 56
== END 2024-06-14 08:49 | disposition home or self-care (01) ==
LOC: HO.RESP 08:48
PROVIDERS: PCP Family Medicine; Visit Provider Family Medicine
DX: R06.02 Shortness of breath (principal); G35 Multiple sclerosis
CPT/HCPCS: 94010; 94640; 94727; 94729

== ENCOUNTER → 2024-06-14 08:53 | Outpatient (BNV) | payer BC, SELFPAY | PROVIDERS: PCP Family Medicine; Visit Provider Internal Medicine Pulmonary Disease | DX: R06.02 Shortness of breath (principal) | CPT/HCPCS: 94060; 94727; 94729 ==

== ENCOUNTER 2024-08-09 14:52 | Outpatient (AMB) | payer BC, SELFPAY ==
[2024-08-09 14:56] VITALS: BP 98/62; PULSE 67; BMI 23.1
--- NOTE | 2024-08-09 14:56 | MHC.OFFVIS ---
Vital Signs 08/09/24 14:56 Height 5 ft 6 in Weight 143 lb 4.807 oz BMI 23.1 BP 98/62 Blood Pressure Location Lt brachial Position Sitting Pulse 67 Intake Visit Reasons: 4 mth f/up Intake Note: 4 month follow-up feeling good Hot Packer Required: No Allergies erythromycin base [ERYTHROMYCIN BASE] Allergy (Intermediate, Unverified 04/04/24 14:23) RASH BUTTERFLY SUTURES Allergy (Intermediate, Uncoded 04/04/24 14:23) BLISTERS e-mycin Allergy (Unknown, Uncoded 04/04/24 14:23) rash percocet Allergy (Unknown, Uncoded 04/04/24 14:23) vomiting steri strips Allergy (Unknown, Uncoded 04/04/24 14:23) blisters Medication List - Last Reconciled 08/09/24 by René Barakat MD baclofen 10 mg PO BEDTIME metoprolol succinate ER 50 mg PO DAILY ofatumumab (Kesimpta Pen) mg subcut HPI Comments Details: Chelsea comes for follow-up. Her cardiac workup in terms of structural heart issues within normal limits with normal echo LV EF although she had wall motion abnormality. Follow-up myocardial perfusion imaging within normal limits. Head-up tilt-table test consistent with orthostatic hypotension with persistent tachycardia. She has responded well to metoprolol in his symptoms have improved. She says she tried to take herself off metoprolol and had rapid heart rate again. She also tried to increase her salt intake but developed some more edema related to her lymphedema in the right lower extremity especially. She is now trying to increase her fluid intake. She has not had any syncopal episodes. Still gets orthostatic symptoms. PENDING SALE TO [facility] Family History Father Stented coronary artery Atrial fibrillation and flutter Social History Alcohol intake: current Alcohol intake frequency: holidays/special occasions only Patient Tobacco Use Status: Never used Tobacco Review of Systems Const Denies chills, Denies fatigue, Denies fever(s), Denies frequent falls, Denies weakness, Denies weight gain and Denies weight loss ENT Denies dizziness Card Denies chest pain, Denies leg edema, Denies lightheadedness, Denies palpitations, Denies dyspnea, Denies dyspnea on exertion, Denies orthopnea and Denies other (loss of consciousness) Resp Denies cough, Denies dyspnea and Denies dyspnea on exertion GI Denies hematochezia and Denies change in stool character Musc Denies abnormal gait, Denies muscle weakness, Denies numbness, Denies radiating pain into limb and Denies tingling Neuro Denies abnormal gait, Denies dizziness, Denies frequent falls, Denies numbness, Denies tingling and Denies weakness Endo Denies fatigue and Denies palpitations Physical Exam Vital Signs: Last Vital Signs Pulse 67 08/09/24 14:56 BP 98/62 08/09/24 14:56 BMI result Body Mass Index 23.1 Const General: cooperative, healthy appearing, comfortable and no acute distress Orientation/consciousness: patient oriented x3 Neck Neck: Yes normal visual inspection Resp Effort & Inspection: normal respiratory effort Auscultation: clear to auscultation bilaterally, no rales, no rhonchi and no wheezes Cardio Rate: regular rate Rhythm: regular rhythm Heart sounds: S1 normal heart sound present, S2 normal heart sound present, no murmurs and no rubs Skin General skin exam: no rashes or lesions noted Neuro General: patient oriented x3 Extrem Other: soft edema each lower leg, right > Left. Psych Appearance: grossly normal Mental Status: mental status grossly normal Speech and movement: Normal speech and movement present Assessment & Plan Assessment & Plan (1) Tachycardia: Code(s): R00.0 - Tachycardia, unspecified Category: Medical Plan: Patient was tachycardia which approach to be inappropriate sinus tachycardia but has orthostasis noted on tilt-table test. 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 At this point time will continue metoprolol therapy which has helped her symptoms. Advised to continue maintain adequate hydration. Difficulty in managing autonomic dysfunction was discussed. Orthostatic precautions were discussed. If she continues to have significant symptoms can consider adding midodrine or Northera to her regimen. Can also consider switching her metoprolol to Corlanor therapy. Will follow up in the clinic in 1 year's time, sooner p.r.n.. Thank you for allowing me to partake in his care Coding Level of Care Code Est Pt Level 3 (92902) Complex EM visit Add On G2211 Diagnoses Tachycardia R00.0
== END 2024-08-09 15:24 | disposition home or self-care (01) ==
PROVIDERS: PCP Family Medicine; Visit Provider Internal Medicine Cardiovascular Disease
DX: R00.0 Tachycardia, unspecified (principal)
CPT/HCPCS: 99213

== ENCOUNTER 2025-01-18 11:22 | Outpatient (REF) | payer BC, SELFPAY ==
--- OUTSIDE RECORDS SUMMARY | 2025-01-18 12:23 | XMS_ITS | Clinical Summary ---
Author Organization [address] [facility] Address [address] [place] [address] Phone Care Team Providers Care Shaker Flatwork Name Role Phone Jet Davis MD Primary Care Provider [phone] Allergies Active Allergy Reactions Criticality Noted Date Comments Azithromycin Rash Low 06/03/2021 Medications Ofatumumab (Kesimpta Pen) 20 mg/0.4 mL pen injector injection Inject 0.4 mL (20 mg total) under the skin every 28 (twenty-eigh t) days. 0.4 mL 5 4 Active baclofen (LIORESAL) 10 mg tablet 1 po in am and 1 1/2 hs 4 Active cyanocobalamin/ folic acid (vitamin P08-zjndl acid) 1,000-400 mcg lozenge 3 Active metoprolol succinate (TOPROL-XL) 50 mg 24 hr tablet Take 1 tablet (50 mg total) by mouth 1 (one) time each day. 4 Active cholecalciferol (VITAMIN D-3) 50 mcg (2,000 unit) capsule Take 1 capsule (2,000 Units total) by mouth 1 (one) time each day. 30 each 11 5 09/02/19 26 Active dalfampridine 10 mg tablet extended release 12 hr msot 60 tablet 3 4 09/29/19 24 Discontinu ed(Reorder ) Encounters Date Type Department Care Team Description 12/26/2024 11:30 AM EDT Office Visit [facility] [address] [facility] [address] [place] [address] Lien Gray PA Multiple sclerosis ([facility]/HCC V24, CMS/[facility] V28) (Primary Dx) from Last 3 Months Surgical History Surgery Date Site/Laterality Comments CHOLECYSTECTOMY PROCEDURE:CHOLECYSTECTOMY Medical History Medical History Date Comments Asthma DX:Asthma MS (multiple sclerosis) (CMS /HCC V24, CMS/HCC V28) DX:MS (multiple sclerosis) ( HCC) Family History Medical History Relation Name Comments Cancer Father Heart disease Father Lung cancer Father Melanoma Father Hypertension Mother Melanoma Mother Multiple sclerosis Neg Hx Relation Name Status Comments Father Alive Mother Alive Social History Tobacco Use Types Packs/Day Years Used Date Smoking Tobacco: Never Smokeless Tobacco: Never Tobacco Cessation:Counseling Given: Not Answered Alcohol Use Standard Drinks/Week Comments Yes 0 (1 standard drink = 0.6 oz pur e alcohol) Comments Unknown Sex and Gender Information Value Date Recorded Sex Assigned at Not on file Legal Sex Female 9:49 AM EST Gender Identity Not on file Sexual Orientation Not on file Obstetrics History Last Filed Vital Signs Vital Sign Reading Time Taken Comments Blood Pressure 101/65 12/26/2024 11:35 AM EDT Pulse 52 12/26/2024 11:35 AM EDT Temperature 36.9 C (98.4 F) 12/26/2024 11:35 AM EDT Respiratory Rate - - Oxygen Saturation 98% 12/26/2024 11:35 AM EDT Inhaled Oxygen Concentration - - Weight 70.3 kg (155 lb) 12/26/2024 11:35 AM EDT Height 167.6 cm (5' 6 ) 12/26/2024 11:35 AM EDT Body Mass Index 25.02 12/26/2024 11:35 AM EDT Plan of Treatment Upcoming Encounters Date Type Department Care Team (Late st Contact Info) Description 04/13/2025 4:00 PM EDT Office Visit [facility] [place] [facility] [place] [address] [facility] [address] [place] [address] Liol Romo MD [address] [facility] [address] [place] [id number] Health Maintenance Due Date Last Done Comments Breast Cancer Screening 1965 DTaP,Tdap,and Td Vaccines (1 - Tdap) 12/21/1986 Hepatitis B Vaccines (1 of 3 - 19+ 3-dose series) 12/21/1986 Cervical Cancer Screening: P ap Smear 12/21/1988 Pneumococcal Vaccine: 50+ Years (1 of 1 - PCV) 12/21/2017 Zoster Vaccines (1 of 2) 12/21/2017 Colorectal Cancer Screening: Colonoscopy 06/01/2022 HIV Screening 06/01/2022 Hepatitis C Screening 06/01/2022 Social Influencers of Health Screening 06/01/2022 COVID-19 Vaccine ( - 2023-2 5 season) 2024 05/25/2021, 09/25/2020, 08/28/2020 Depression Screening 06/29/2024 Influenza Vaccine (#1) 2025 HIB Vaccines Aged Out No longer eligi ble based on patient's age to complete this topic HPV Vaccines Aged Out No longer eligi ble based on patient's age to complete this topic Hepatitis A Vaccines Aged Out No long er eligible based on patient's age to complete this topic IPV Vaccines Aged Out No longer eligi ble based on patient's age to complete this topic MMR Vaccines Aged Out No longer eligi ble based on patient's age to complete this topic Meningococcal ACWY Vaccine Aged Out N o longer eligible based on patient's age to complete this topic Meningococcal B Vaccine Aged Out No l onger eligible based on patient's age to complete this topic RSV Immunization Patients Under 20 months Aged Out No longer eligible b ased on patient's age to complete this topic Varicella Vaccines Aged Out No longer eligible based on patient's age to complete this topic Insurance [facility] Care Teams Shaker Flatwork Relationship Specialty Start Date End Date Jet Davis MD [address] [place] [address] [place] [address] PCP - General Internal Medicine 05/20/21
--- OUTSIDE RECORDS SUMMARY | 2025-01-18 12:23 | XMS_ITS | Patient Health Record ---
Author Organization [facility] Address [address] [place] [address] Care Team Providers Care Customer Service Representative Name Role Phone Ryan (RETIRED) Jet ORTIZ Primary Care Provider Unavailable Javier Ambriz Unavailable [phone] Allergies Allergen (clinical drug ingredient) Drug/Non Drug Allergy documented on EMR Reaction Allergy Type Onset Date Status erythromycin Erythromycin Unknown Drug Allergy A ctive Results Component Value Reference Range Notes Complete Blood Count Auto Di ff Reviewed date:06/02/2024 10:59:02 PM Interpretation: Performing Lab:[facility], [address] [place] [phone] Notes/Report: White Blood Count 4.1 4.8-10.8 X10*3/uL Red Blood Count 3.70 4.20-5.50 X10*6/uL Hemoglobin 11.8 12.0-16.0 g/dl Hematocrit 35.9 37.0-47.0 % Mean Corpuscular Volume 97.0 80.0-98.0 fL Mean Corpuscular Hemoglobin 31.9 27.0-33.0 pg Mean Corpuscular HGB Conc 32.9 31.0-35.0 g/dl Red Cell Distribution Width 12.7 11.0-16.0 % Platelet Count 255 160-400 X10*3/uL Mean Platelet Volume 10.2 9.4-12.3 fL Neutrophils Percent Auto 52.4 45-73 % Imm Gran Pct Auto 0.2 0.0-0.4 % Lymphocytes Percent Auto 34.1 20-40 % Monocytes Percent Auto 9.2 2-11 % Eosinophils Percent Auto 2.9 0-4 % Basophils Percent Auto 1.2 0-2 % NRBC Pct Auto 0.0 0.0-0.2 /100WBC Neutrophils Absolute Auto 2.2 2.0-8.3 x10*3/u L Imm Gran Abs Auto 0.01 0.00-0.03 X10*3/uL Lymphocytes Absolute Auto 1.4 1.2-4.9 X10*3/u L Monocytes Absolute Auto 0.4 0.1-1.2 X10*3/uL Eosinophils Absolute Auto 0.1 0.0-0.4 X10*3/u L Basophils Absolute Auto 0.1 0.0-0.2 X10*3/uL NRBC Abs Auto 0.000 0.0-0.012 X10*3/uL Liver Panel Reviewed date:06/02/2024 10:59:13 PM Interpretation: Performing Lab:[facility], [address] [place] [phone] Notes/Report: Bilirubin Total 0.5 0.0-1.0 mg/dL Bilirubin Direct 0.2 0.0-0.5 mg/dL Aspartate Amino Transferase 20 5-31 U/L Alanine Aminotransferase 13 0-31 U/L Total Protein 6.5 6.5-8.0 g/dL Albumin Level 4.1 3.5-5.0 g/dL Alkaline Phosphatase 57 39-117 U/L IRON PROFILE Reviewed date:06/02/2024 10:59:22 PM Interpretation: Performing Lab:[facility], [address] [place] [phone] Notes/Report: Iron 110 30-160 mcg/dL Total Iron Binding Capacity 247 228-428 mcg/d L Percent Iron Saturation 45 15-50 % Unsaturated Iron Binding 137 Ferritin Reviewed date:06/02/2024 10:59:31 PM Interpretation: Performing Lab:[facility], [address] [place] [phone] Notes/Report: Ferritin 329 10-250 ng/mL TSH reflex Free T4 Reviewed date:06/02/2024 11:06:18 PM Interpretation: Performing Lab:[facility], [address] [place] [phone] Notes/Report: TSH reflex Free T4 2.84 0.32-4.0 uIU/mL Immunoglobulin A Reviewed date:06/08/2024 01:42:02 PM Interpretation: Performing Lab:[facility], [address] [place] [phone] Notes/Report: Immunoglobulin A 178 47-310 mg/dL THIS TEST WAS PERFORMED AT: [facility] [address] [place] [phone] HANS TRINIDAD MD Transglutaminase Ab IgG Reviewed date:06/08/2024 01:42:21 PM Interpretation: Performing Lab:[facility], [address] [place] [phone] Notes/Report: Transglutaminase Ab IgG <1.0 Value Interpretation ----- <15.0 Antibody not detected > or = 15.0 Antibody detected THIS TEST WAS PERFORMED AT: [facility] [address] [place] [phone] HANS TRINIDAD MD Transglutaminase IgA Reviewed date:06/08/2024 01:42:30 PM Interpretation: Performing Lab:[facility], [address] [place] [phone] Notes/Report: Transglutaminase IgA 20.2 Value Interpretation ----- <15.0 Antibody not detected > or = 15.0 Antibody detected THIS TEST WAS PERFORMED AT: [facility] [address] [place] [phone] HANS TRINIDAD MD Gliadin Ab Panel Reviewed date:07/13/2024 11:46:22 PM Interpretation: Performing Lab:[facility], [address] [place] [phone] Notes/Report: Gliadin Deamidated IgA Ab 13.1 Value Interpretation ----- <15.0 Antibody not detected > or = 15.0 Antibody detected Gliadin Deamidated IgG Ab 4.5 Value Interpretation ----- <15.0 Antibody not detected > or = 15.0 Antibody detected THIS TEST WAS PERFORMED AT: [facility] [address] [place] [phone] HANS TRINIDAD MD Endomysial IgA rflx Titer Reviewed date:06/08/2024 01:42:47 PM Interpretation: Performing Lab:[facility], [address] [place] [phone] Notes/Report: Endomysial IgA Antibody Negative Negative THIS TEST WAS PERFORMED AT: [facility] [phone] PATTY LALA MD,PHD Endomysial Titer TNP Reason For Referral No Information Medications Medication SIG (Take, Route, Frequency, Duration) Notes Start Date End Date Status Baclofen 20 MG/20ML 1 mL as needed Orall y Once a day Active Metoprolol Succinate 50 MG 1 capsule Orally Once a day Active B Complex - as directed Orally Active Vitamin C 500 MG as directed Orally Active Kesimpta 20 MG/0.4ML Subcutaneous for 30 Monthly for MS Active Vitamin D (Ergocalciferol) 1.25 MG (54892 UT) TAKE 1 CAPSULE BY MOUTH ONE TIME PER WEEK Oral for 84 Active Immunizations Vaccine Route Administration Date Status Comme nts Influenza Unknown 12/16/2023 Refused Social History Tobacco Use: Social History Observation Description Date Details (start date - stop date) Never Smoker NA - NA Tobacco Use/Smoking Question Answer Notes Patient is a nonsmoker Alcohol Screen Question Answer Notes Did you have a drink contain ing alcohol in the past year? Yes How often did you have a dri nk containing alcohol in the past year? 2 to 4 times a month (2 points) How many drinks did you have on a typical day when you were drinking in the past year? 1 or 2 drinks (0 point) How often did you have 6 or more drinks on one occasion in the past year? Never (0 point) Points 2 Interpretation Negative Section Notes: Nonsmoker; no sig alcohol Nonsmoker; no sig alcohol Nonsmoker; no sig alcohol Problems Problem Type SNOMED Code ICD Code Onset Dates Problem Status W/U Status Risk Notes Problem [id number] Encounter for screening for malignant neoplasm of colon (Z12.11) Active confirmed Problem Celiac disease (441224923) Celiac disease (K90.0) Active confirmed Problem Fatigue (80387479) Other fatigue (R53.83) Active confirmed Problem [id number] Preprocedural examination (Z01.818) Active confirmed Problem Irritable bowel (32769787) Irritable bowel (K58.9) Active confirmed Problem Elevated anti-tissue transglutaminase (tTG) IgA level (R76.8) Active confirmed Vital Signs Temperature 97.5 degrees Fahrenheit 06/28/2024 Blood pressure diastolic 01 mm Hg 06/28/2024 Height 66 in 06/28/2024 Blood pressure systolic 001 mm Hg 06/28/2024 Weight 139.4 lbs 06/28/2024 BMI 22.5 kg/m2 06/28/2024 Encounters Encounter Location Date Provider Diagnosis [facility] [address] [place] [address] 06/28/2024 Javier Ambriz Celiac disease K90.0 ; Irritable bowel K58.9 and Encounter for screening for malignant neoplasm of colon Z12.11 Assessments Encounter Date Diagnosis (ICD Code) Assessment Notes Treatment Notes Treatment Clinical Notes Section Notes 06/28/2024 Celiac disease (ICD-10 - K90.0) Continue the Gluten-free diet for the celiac disease. Call me if the GI symptoms worsen. Overall, Javon appears quite well. We did review that her residual GI symptoms seem most consistent with some underlying irritable bowel syndrome as opposed to active celiac disease based on the recent laboratories with a much improved tissue transglutaminase level compared to the level of over 200 prior to the initiation of her gluten-free diet in 2021, no significant diarrhea, and and her overall good clinical appearance. As such, I did advise her to continue her gluten-free diet. She is still not inclined to undergo upper endoscopy with duodenal biopsies as she does not want to do a gluten challenge. We did review that obviously if she was to have increasing GI problems with things such as diarrhea then she would want to call me and we might then want to repeat her celiac disease labs and consider duodenal biopsies to see if she is having any significant signs of celiac disease despite trying to stay on a careful gluten-free diet. I did advise her to be sure to increase her dietary fiber, continue fiber supplements, and drink plenty of fluids in order to help with her irritable bowel syndrome and to avoid constipation. We did review that she will need a followup screening colonoscopy in 2029. If things otherwise remain stable I advised Javon that she can see me on a p.r.n. basis. She was comfortable with this plan. Thank you again for allowing me to participate in Javon's care. I shall continue to keep advised of her progress as needed. 06/28/2024 Irritable bowel (ICD-10 - K58.9) Overall, Javon appears quite well. We did review that her residual GI symptoms seem most consistent with some underlying irritable bowel syndrome as opposed to active celiac disease based on the recent laboratories with a much improved tissue transglutaminase level compared to the level of over 200 prior to the initiation of her gluten-free diet in 2021, no significant diarrhea, and and her overall good clinical appearance. As such, I did advise her to continue her gluten-free diet. She is still not inclined to undergo upper endoscopy with duodenal biopsies as she does not want to do a gluten challenge. We did review that obviously if she was to have increasing GI problems with things such as diarrhea then she would want to call me and we might then want to repeat her celiac disease labs and consider duodenal biopsies to see if she is having any significant signs of celiac disease despite trying to stay on a careful gluten-free diet. I did advise her to be sure to increase her dietary fiber, continue fiber supplements, and drink plenty of fluids in order to help with her irritable bowel syndrome and to avoid constipation. We did review that she will need a followup screening colonoscopy in 2029. If things otherwise remain stable I advised Javon that she can see me on a p.r.n. basis. She was comfortable with this plan. Thank you again for allowing me to participate in Javon's care. I shall continue to keep advised of her progress as needed. 06/28/2024 Encounter for screening for malignant neoplasm of colon (ICD-10 - Z12.11) Repeat screening colonoscopy in 2029 Overall, Javon appears quite well. We did review that her residual GI symptoms seem most consistent with some underlying irritable bowel syndrome as opposed to active celiac disease based on the recent laboratories with a much improved tissue transglutaminase level compared to the level of over 200 prior to the initiation of her gluten-free diet in 2021, no significant diarrhea, and and her overall good clinical appearance. As such, I did advise her to continue her gluten-free diet. She is still not inclined to undergo upper endoscopy with duodenal biopsies as she does not want to do a gluten challenge. We did review that obviously if she was to have increasing GI problems with things such as diarrhea then she would want to call me and we might then want to repeat her celiac disease labs and consider duodenal biopsies to see if she is having any significant signs of celiac disease despite trying to stay on a careful gluten-free diet. I did advise her to be sure to increase her dietary fiber, continue fiber supplements, and drink plenty of fluids in order to help with her irritable bowel syndrome and to avoid constipation. We did review that she will need a followup screening colonoscopy in 2029. If things otherwise remain stable I advised Javon that she can see me on a p.r.n. basis. She was comfortable with this plan. Thank you again for allowing me to participate in Javon's care. I shall continue to keep advised of her progress as needed. Plan Of Treatment Pending Test Test Name Order Date LIVER PROFILE 12/16/2023 IRON + IBC (FE) 12/16/2023 CBC w DIFF 12/16/2023 CELIAC PANEL #10 12/16/2023 Ferritin 12/16/2023 TSH reflex Free T4 12/16/2023 Future Test Test Name Order Date COLONOSCOPY 05/11/2019 Insurance Providers Payer Name Payer Address Payer Phone Subscriber Number Group Number Insured Name Patient Relationship to Insured Coverage Start Date Coverage End Date [facility] [address] [place], [place] [id number] ESPINAL Self - patient is the insured Medical (General) History Medical History History ICD Code Asthma -mild--inhalers prn Denies CA,DM,CVA,,renal disease Describes a negative colonoscopy in [facility] at age 37 IBS Multiple sclerosis Celiac disease based on elevated TTG IgA of 207 in 12/2021 Screening colonoscopy in 02/2020 with rem oval of a nonadenomatous polyp orthostatic hypertension Surgical History Surgery Date(Month/Year) Cholecystectomy/umbilical hernia--Dr. Ernesto chacon 2011
--- OUTSIDE RECORDS SUMMARY | 2025-01-18 12:23 | XMS_ITS | Patient Health Record ---
Author Organization [facility] Address [address] [place] [address] Care Team Providers Care Framing Mill Supervisor Name Role Phone Ryan ORTIZ, Jet Primary Care Provider Tesfaye Ruvalcaba Unavailable [phone] Allergies Allergen (clinical drug ingredient) Drug/Non Drug Allergy documented on EMR Reaction Allergy Type Onset Date Status Biaxin rash Drug Allergy Active erythromycin Erythromycin rash Drug Allergy A ctive Z Pac rash Drug Allergy Active Reason For Referral No Information Medications Medication SIG (Take, Route, Fr equency, Duration) Notes Start Date End Date Status Albuterol Active Vitamin D Active Meloxicam 15 MG 1 tablet Orally Once a day; Duration: 30 day(s) 05/30/2015 Active Problems Problem Type SNOMED Code ICD Code Onset Dates Problem Status W/U Status Risk Notes Problem Pain in left foot (583613858228 107) Pain in left foot (M79.672) Active confirmed Plan Of Treatment No Information Insurance Providers Payer Name Payer Address Payer Phone Subscriber Number Group Number Insured Name Patient Relationship to Insured Coverage Start Date Coverage End Date [employer] [address] [place] [address] [phone] [id number] Urvashi Martinez Self - patient is the insured Medical (General) History Medical History History ICD Code asthma Multiple sclerosis Chicken pox Surgical History Surgery Date(Month/Year) gall bladder 07/2012
--- OUTSIDE RECORDS SUMMARY | 2025-01-18 12:23 | XMS_ITS | Clinical Summary ---
Author Organization [facility] Address [address] [place] [address] Care Team Providers Care Bacon De Rinder Name Role Phone Jet Davis MD Primary Care Provider [phone] Allergies Active Allergy Reactions Criticality Noted Date Comments Azithromycin Rash Low 06/03/2021 Medications Medication Sig Dispensed Refills Start Date End Date Status ergocalciferol (VITAMIN D2) capsule 18658 units TAKE 1 CAPSULE BY MOUTH ONE TIME PER WEEK 12 capsule 0 01/10/2023 Active Cobalamin Combinations (B-12) 100-5000 MCG SUBL 0 12/29/2022 Active Kesimpta 20 MG/0.4ML SOAJIndications:Multi ple sclerosis (HCC) INJECT 1 PEN UNDER THE SKIN EVERY MONTH 0.4 mL 5 11/30/2023 Active baclofen (LIORESAL) 10 MG tablet 1 po in am and 1 1/2 hs 75 tablet 5 01/25/2024 Active Active Problems No known active problems Family History Medical History Relation Name Comments [...] drink = 0.6 oz pur e alcohol) Social Sex and Gender Information Value Date Recorded Sex Assigned at Female 05/20/2021 2:22 PM EST Gender Identity Not on file Sexual Orientation Not on file Job Start Date Occupation Industry Not on file Not on file Not on file Last Filed Vital Signs Vital Sign Reading Time Taken Comments Blood Pressure 112/77 01/25/2024 11:09 AM EDT Pulse 92 01/25/2024 11:09 AM EDT Temperature 36.4 C (97.6 F) 01/25/2024 11:09 AM EDT Respiratory Rate 16 04/29/2023 3:24 PM EDT Oxygen Saturation 97% 01/25/2024 11: 09 AM EDT Inhaled Oxygen Concentration - - Weight 69.8 kg (153 lb 12.8 oz) 024 11:09 AM EDT Height 167.6 cm (5' 6 ) 01/25/2024 11:0 9 AM EDT Body Mass Index 24.82 01/25/2024 11:09 AM EDT Plan of Treatment Health Maintenance Due Date Last Done Comments Hepatitis B Vaccines (1 of 3 - 3-dose series) 1967 Hepatitis C Screening 1965 COVID-19 Vaccine (#1) 06/22/1968 Depression Screening 1979 BMI Counseling 12/21/1985 Preventative Health Evaluation 12/21/1985 DTap / Tdap / Td (1 - Tdap) 12/21/1986 Cervical Cancer Screening (P ap Smear) 12/21/1988 Colon Cancer Screening (Colonoscopy) 12/21/2012 Breast Cancer Screening (Mammogram) 12/21/2017 Shingrix-Zoster Vaccine (1 of 2) 12/21/2017 Influenza Vaccine (#1) 2025 Pneumococcal Vaccine Aged Out No long er eligible based on patient's age to complete this topic RSV Ped < 20 months Aged Out No longe r eligible based on patient's age to complete this topic Care Teams Bacon De Rinder Relationship Specialty Start Date End Date Jet Davis MD [address] [place] [address] [address] FILIBERTO [place] [phone] PCP - General Internal Medicine 05/20/21
[2025-01-18 13:01] LABS: MANUAL DIFF FLAG NO
[2025-01-18 13:09] LABS: Hematocrit 35.5 % (37.0-47.0); Hemoglobin 11.9 g/dl (12.0-16.0); Imm Gran Abs Auto 0.01 X10*3/uL (0.00-0.03); Imm Gran Pct Auto 0.2 % (0.0-0.4); Lymphocytes Absolute Auto 1.6 X10*3/uL (1.2-4.9); Mean Corpuscular HGB Conc 33.5 g/dl (31.0-35.0); Mean Corpuscular Hemoglobin 32.6 pg (27.0-33.0); Mean Corpuscular Volume 97.3 fL (80.0-98.0); NRBC Abs Auto 0.000 X10*3/uL (0.0-0.012); NRBC Pct Auto 0.0 /100WBC (0.0-0.2); Platelet Count 233 X10*3/uL (160-400); Red Blood Count 3.65 X10*6/uL (4.20-5.50); White Blood Count 4.6 X10*3/uL (4.8-10.8)
[2025-01-18 13:32] LABS: Alanine Aminotransferase 38 U/L (0-31); Albumin Level 4.5 g/dL (3.5-5.0); Alkaline Phosphatase 52 U/L (39-117); Aspartate Amino Transferase 42 U/L (5-31); Total Protein 6.8 g/dL (6.5-8.0)
[2025-01-18 13:45] LABS: Vitamin B12 761 pg/mL (200-900)
== END 2025-01-18 11:23 | disposition home or self-care (01) ==
LOC: HO.10HDL 11:22
PROVIDERS: Referring Provider Physician Assistant; Visit Provider Physician Assistant
DX: G35 Multiple sclerosis (principal)
CPT/HCPCS: 36415; 80076; 82306; 82607; 84443; 84481; 85025

== ENCOUNTER 2025-03-27 16:21 | Outpatient (AMB) | payer BC, SELFPAY ==
[2025-03-27 16:27] VITALS: BP 116/60; PULSE 72; TEMP 37; O2SAT 99; BMI 22.3
--- NOTE | 2025-03-27 16:27 | MHC.PC.OV ---
Vital Signs 03/27/25 16:27 Height 5 ft 6 in Weight 62.596 kg BMI 22.3 BP 116/60 Blood Pressure Location Rt brachial Position Sitting Pulse 72 Pulse Source Pulse Oximeter Temp 98.6 F Temp Source Temporal Artery Scan Pulse Oximetry (%) 99 Oxygen Delivery Method Room Air Intake Visit Reasons: 3 MO F/UP - GONSALEZ PT - see comments Drafter Civil (Cad) Required: No Accompanied by: Self / Same As Patient Allergies erythromycin base (ERYTHROMYCIN BASE) Allergy (Intermediate, Verified 03/27/25 16:27) RASH BUTTERFLY SUTURES Allergy (Intermediate, Uncoded 04/04/24 14:23) BLISTERS e-mycin Allergy (Unknown, Uncoded 04/04/24 14:23) rash percocet Allergy (Unknown, Uncoded 04/04/24 14:23) vomiting steri strips Allergy (Unknown, Uncoded 04/04/24 14:23) blisters Medication List - Last Reconciled 03/27/25 by FIDELIA Zimmer baclofen 10 mg PO BEDTIME metoprolol tartrate 25 mg PO BID ofatumumab (Kesimpta Pen) mg subcut Tobacco use date assessed: 03/27/25 Dental Screening Dental Screen Date: 03/27/25 Did you have a dental visit in the last 12 months?: Yes Did you have a dental problem in the last 6 months where you did not have access to dental care?: No HPI HPI Comments History of Present Illness Details 59-year-old female with history of multiple sclerosis, IBS, GERD, venous insufficiency, footdrop right foot presenting to the office today for management of chronic conditions and to establish care. MS/right footdrop/fallen arch-PT recommending AFO. Using Kesimpta. Also using baclofen. Following with Dr. Loja. [facility]. Walking worsened after starting Kesimpta, no further lesions noted. On a break from PT IBS/Celiac- Dr. Ambriz recommended finding out addl sources of gluten. Immodium prn LE edema- thought to be lymphedema Concerns: R knee pain- feels like the knee is unrelated. Sharp pain noted last week. No specific injury but did step down directly on to this without twisting with sharp pain. Was taking magnesium. Able to ambulate. No instability. Using a compression wrap. Knee faces straight but lower leg/foot out. Health Maintenance: Last screening mammogram 05/2024 with 1 year follow-up advised Last screening colonoscopy 02/2020 with 10 year follow-up advised, Dr. Ambriz ROS: none EXAM: Constitutional - Awake and Alert, No apparent distress Eyes - PERRL Cardiovascular - S1S2, RRR, 3+ pitting edema Respiratory - Normal lung expansion, Normal respiratory effort, No respiratory distress, CTA bilaterally Extremities - no calf tenderness bilaterally, no swelling MSK- mild ttp of the medial compartment of the right knee, full extension, limited flexion Skin - Warm/Dry Neurological - Alert & oriented x3. AFO brace in place Psychological - Appropriate affect [facility] Medical History (Updated 03/27/25 @ 16:48 by FIDELIA Zimmer) Lymphedema GERD (gastroesophageal reflux disease) Irritable bowel syndrome with diarrhea Multiple sclerosis Palpitations Surgical History History of colonoscopy (~03/26/20) Family History (Updated 03/27/25 @ 16:34 by Antoinette Bolaños MA) Father Stented coronary artery Atrial fibrillation and flutter Mother No problems noted. Social History Housing: House Alcohol intake: current Alcohol intake frequency: holidays/special occasions only Patient Tobacco Use Status: Never used Tobacco e-Cigarette/Vaping Use: Never Used service: No Current occupational status: employed Cognitive needs: No Hearing needs: No Vision needs: Yes (Rx glasses) Questionnaire PHQ-9 Over the last 2 weeks, how often have you been bothered by any of the following problems? 1. Little interest or pleasure in doing things: not at all 2. Feeling down, depressed, or hopeless: not at all 3. Trouble falling or staying asleep, or sleeping too much: not at all 4. Feeling tired or having little energy: not at all 5. Poor appetite or overeating: not at all 6. Feeling bad about yourself - or that you are a failure or have let yourself or your family down: not at all 7. Trouble concentrating on things, such as reading the newspaper or watching television: not at all 8. Moving or speaking so slowly that other people could have noticed. Or the opposite - being so fidgety or restless that you have been moving around a lot more than usual: not at all 9. Thoughts that you would be better off or of hurting yourself in some way: not at all Total score: 0 Source: Developed by Drs. Javier Pepe, Yudy Haddad, Stevo Navarro and colleagues, with an educational nigel from [employer]). Thrive Questionnaire Date Thrive assessed: 03/27/25 I am a: Patient Within the past 12 months, did the food you bought not last and you didn't have the money to get more?: Never true Within the past 12 months, did you worry whether your food would run out before you got money to buy more?: Never true Do you have trouble paying for medicines?: No Do you have trouble getting transportation to medical appointments?: No Do you have trouble paying your heating and electricity bill?: No Do you have trouble taking care of your child, family member or friend?: No Do you have trouble with day-to-day activities such as bathing, preparing meals, shopping, managing finances, etc.?: No Are you currently unemployed and looking for a job?: No Are you interested in more education?: No THRIVE Score: 0 AUDIT C Alcohol Use Questionnaire (AUDIT-C) 1. How often do you have a drink containing alcohol?: Monthly or less 2. How many drinks containing alcohol do you have on a typical day when you are drinking?: 1 or 2 3. How often do you have six or more drinks on one occasion?: Less than monthly Total Score: 2 HANS-7 AMB Questionnaire HANS-7 Date HANS - 7 assessed: 03/27/25 Feeling nervous, anxious, or on edge: 0 = Not at all Not being able to stop or control worryin = Not at all Worrying too much about different things: 0 = Not at all Trouble relaxin = Not at all Being so restless that it is hard to sit still: 0 = Not at all Becoming easily annoyed or irritable: 0 = Not at all Feeling afraid as if something awful might happen: 0 = Not at all Total HANS-7 score (0-4 normal; 5-9 mild; 10-14 moderate; 15-21 severe): 0 Source: Developed by Yudy NagyW. Boo, Stevo Navarro and colleagues, with an educational nigel from [employer]). Physical exam (Primary Care) Vital Signs: Last Vital Signs Temp 98.6 F 03/27/25 16:27 Pulse 72 03/27/25 16:27 BP 116/60 03/27/25 16:27 Pulse Ox 99 03/27/25 16:27 Oxygen Delivery Method Room Air 03/27/25 16:27 BMI result Body Mass Index 22.3 Tobacco/Smoking Status: Tobacco use Status Tobacco use date assessed 03/27/25 03/27/25 16:28 Patient Tobacco Use Status Never used Tobacco 03/27/25 16:28 e-Cigarette/Vaping Use Never Used 03/27/25 16:28 PHQ-9: PHQ-9 Score PHQ-9: Total score 0 03/27/25 16:41 Thrive Assessment: Date of Thrive Assessment Date Thrive assessed 03/27/25 03/27/25 16:28 Coding Level of Care Code New Pt Level 4 (88189) Complex EM visit Add On G2211 Diagnoses Palpitations R00.2 Multiple sclerosis G35 GERD (gastroesophageal reflux disease) K21.9 Right knee pain M25.561 Assessment & Plan Assessment & Plan (1) Palpitations: Code(s): R00.2 - Palpitations Category: Medical Plan: Stable. Continue metoprolol. Drink plenty of water. Reviewed last cardiology note as well as echocardiogram, Holter monitor, stress test (2) Multiple sclerosis: Code(s): G35 - Multiple sclerosis Category: Medical Plan: Stable. Continue following with the [facility] and use Kesimpta as prescribed. Baclofen p.r.n. (3) GERD (gastroesophageal reflux disease): Code(s): K21.9 - Gastro-esophageal reflux disease without esophagitis Category: Medical Plan: Stable. Avoid triggering foods (4) Right knee pain: Code(s): M25.561 - Pain in right knee Category: Medical Plan: X-ray of the right knee is ordered. Referral placed to orthopedics. Analgesics p.r.n. Plan Follow-up in the office for annual physical exam with labs completed several days prior to visit Orders: Orders XR knee RT 3V Today G35 - Multiple sclerosis, I89.0 - Lymphedema, not elsewhere classified, K21.9 - Gastro-esophageal reflux disease without esophagitis, M25.561 - Pain in right knee, R00.2 - Palpitations Basic Metabolic Panel 9 Months G35 - Multiple sclerosis, I89.0 - Lymphedema, not elsewhere classified, K21.9 - Gastro-esophageal reflux disease without esophagitis, R00.2 - Palpitations Liver Panel 9 Months G35 - Multiple sclerosis, I89.0 - Lymphedema, not elsewhere classified, K21.9 - Gastro-esophageal reflux disease without esophagitis, R00.2 - Palpitations Lipid Panel 9 Months G35 - Multiple sclerosis, I89.0 - Lymphedema, not elsewhere classified, K21.9 - Gastro-esophageal reflux disease without esophagitis, R00.2 - Palpitations Complete Blood Count Auto Diff 9 Months G35 - Multiple sclerosis, I89.0 - Lymphedema, not elsewhere classified, K21.9 - Gastro-esophageal reflux disease without esophagitis, R00.2 - Palpitations TSH reflex Free T4 9 Months G35 - Multiple sclerosis, I89.0 - Lymphedema, not elsewhere classified, K21.9 - Gastro-esophageal reflux disease without esophagitis, R00.2 - Palpitations
--- OUTSIDE RECORDS SUMMARY | 2025-03-27 18:20 | XMS_ITS | Patient Health Record ---
Author Organization [facility] Address [address] [place] [address] Care Team Providers Care Income Tax Adjuster Name Role Phone Ryan (RETIRED) Jet ORTIZ Primary Care Provider Unavailable Javier Ambriz Unavailable [phone] Allergies Allergen (clinical drug ingredient) Drug/Non Drug Allergy documented on EMR Reaction Allergy Type Onset Date Status erythromycin Erythromycin Unknown Drug Allergy A ctive Results Component Value Reference Range Notes Complete Blood Count Auto Di ff Reviewed date:06/02/2024 10:59:02 PM Interpretation: Performing Lab:[facility], [address] [place] [phone] Notes/Report: White Blood Count 4.1 4.8-10.8 X10*3/uL [...] Panel Reviewed date:06/02/2024 10:59:13 PM Interpretation: Performing Lab:[facility], [address] [place] [phone] Notes/Report: Bilirubin Total 0.5 0.0-1.0 mg/dL Bilirubin Direct 0.2 0.0-0.5 mg/dL Aspartate Amino Transferase 20 5-31 U/L Alanine Aminotransferase 13 0-31 U/L Total Protein 6.5 6.5-8.0 g/dL Albumin Level 4.1 3.5-5.0 g/dL Alkaline Phosphatase 57 39-117 U/L IRON PROFILE Reviewed date:06/02/2024 10:59:22 PM Interpretation: Performing Lab:[facility], [address] [place] [phone] Notes/Report: Iron 110 30-160 mcg/dL Total Iron Binding Capacity 247 228-428 mcg/d L Percent Iron Saturation 45 15-50 % Unsaturated Iron Binding 137 Ferritin Reviewed date:06/02/2024 10:59:31 PM Interpretation: Performing Lab:[facility], [address] [place] [phone] Notes/Report: Ferritin 329 10-250 ng/mL TSH reflex Free T4 Reviewed date:06/02/2024 11:06:18 PM Interpretation: Performing Lab:[facility], [address] [place] [phone] Notes/Report: TSH reflex Free T4 2.84 0.32-4.0 uIU/mL Immunoglobulin A Reviewed date:06/08/2024 01:42:02 PM Interpretation: Performing Lab:[facility], [address] [place] [phone] Notes/Report: Immunoglobulin A 178 47-310 mg/dL THIS TEST WAS PERFORMED AT: [facility] [address] [place] [phone] HANS TRINIDAD MD Transglutaminase Ab IgG Reviewed date:06/08/2024 01:42:21 PM Interpretation: Performing Lab:[facility], [address] [place] [phone] Notes/Report: Transglutaminase Ab IgG <1.0 Value Interpretation ----- <15.0 Antibody not detected > or = 15.0 Antibody detected THIS TEST WAS PERFORMED AT: [facility] [address] [place] [phone] HANS TRINIDAD MD Transglutaminase IgA Reviewed date:06/08/2024 01:42:30 PM Interpretation: Performing Lab:[facility], [address] [place] [phone] Notes/Report: Transglutaminase IgA 20.2 Value Interpretation ----- <15.0 Antibody not detected > or = 15.0 Antibody detected THIS TEST WAS PERFORMED AT: [facility] [address] [place] [phone] HANS TRINIDAD MD Gliadin Ab Panel Reviewed date:07/13/2024 11:46:22 PM Interpretation: Performing Lab:[facility], [address] [place] [phone] Notes/Report: Gliadin Deamidated IgA Ab 13.1 Value Interpretation ----- <15.0 Antibody not detected > or = 15.0 Antibody detected Gliadin Deamidated IgG Ab 4.5 Value Interpretation ----- <15.0 Antibody not detected > or = 15.0 Antibody detected THIS TEST WAS PERFORMED AT: [facility] [address] [place] [phone] HANS TRINIDAD MD Endomysial IgA rflx Titer Reviewed date:06/08/2024 01:42:47 PM Interpretation: Performing Lab:[facility], [address] [place] [phone] Notes/Report: Endomysial IgA Antibody Negative Negative THIS TEST WAS PERFORMED AT: [facility]/[address] [phone] PATTY LALA MD,PHD Endomysial Titer TNP Reason [...] MS Active Vitamin D (Ergocalciferol) 1.25 MG (14649 UT) TAKE 1 CAPSULE BY MOUTH ONE [...] Problem Status W/U Status Risk Notes Problem [id number] Encounter for screening for malignant neoplasm of colon (Z12.11) Active confirmed Problem Celiac disease (572707842) Celiac disease (K90.0) Active confirmed Problem Fatigue (39339205) Other fatigue (R53.83) Active confirmed Problem [id number] Preprocedural examination (Z01.818) Active confirmed Problem Irritable bowel (34006216) Irritable bowel (K58.9) Active confirmed Problem Elevated anti-tissue transglutaminase (tTG) IgA level (R76.8) Active confirmed Vital Signs Temperature 97.5 degrees Fahrenheit 06/28/2024 Blood pressure diastolic 01 mm Hg 06/28/2024 Height 66 in 06/28/2024 Blood pressure systolic 001 mm Hg 06/28/2024 Weight 139.4 lbs 06/28/2024 BMI 22.5 kg/m2 06/28/2024 Encounters Encounter Location Date Provider Diagnosis [facility] [address] [place] [address] 06/28/2024 Javier Ambriz Celiac disease K90.0 ; [...] Insured Coverage Start Date Coverage End Date [facility] [address] [place], [place] [id number] BEHZADJAVON ESPINAL Self - patient is the insured Medical (General) History Medical History History ICD Code Asthma -mild--inhalers prn Denies [place],DM,CVA,,renal disease Describes a negative colonoscopy in [facility] at age 37 IBS Multiple sclerosis Celiac disease based on elevated TTG IgA of 207 in 12/2021 Screening colonoscopy in 02/2020 with rem oval of a nonadenomatous polyp orthostatic hypertension Surgical History Surgery Date(Month/Year) Cholecystectomy/umbilical hernia--Dr. Ernesto chacon 2011
--- OUTSIDE RECORDS SUMMARY | 2025-03-27 18:20 | XMS_ITS | Clinical Summary ---
Author Organization [facility] Address [address] [place] [address] Care Team Providers Care Voip Network Technician Name Role Phone Jet Davis MD Primary Care Provider [phone] Allergies Active Allergy Reactions Criticality Noted Date Comments Azithromycin Rash Low 06/03/2021 Medications Medication Sig Dispensed Refills Start Date End Date Status ergocalciferol (VITAMIN D2) capsule 48279 units TAKE 1 CAPSULE BY MOUTH ONE [...] age to complete this topic Care Teams Voip Network Technician Relationship Specialty Start Date End Date Jet Davis MD [address] [place] [address] DR FILIBERTO [place] [phone] PCP - General Internal Medicine 05/20/21
--- OUTSIDE RECORDS SUMMARY | 2025-03-27 18:20 | XMS_ITS | Patient Health Record ---
Author Organization [facility] Address [address] [place] [address] Care Team Providers Care Legal Records Clerk Name Role Phone Ryan ORTIZ, Jet Primary Care Provider Tesfaye Ruvalcaba Unavailable [phone] Allergies Allergen (clinical drug ingredient) Drug/Non Drug [...] Risk Notes Problem Pain in left foot ([id number] 107) Pain in left foot (M79.672) Active confirmed Plan Of Treatment No Information Insurance Providers Payer Name Payer Address Payer Phone Subscriber Number Group Number Insured Name Patient Relationship to Insured Coverage Start Date Coverage End Date [employer] [address] [place] [address] [phone] [id number] Urvashi Martinez Self - patient is the insured Medical (General) History Medical History History ICD Code asthma Multiple sclerosis Chicken pox Surgical History Surgery Date(Month/Year) gall bladder 07/2012
--- OUTSIDE RECORDS SUMMARY | 2025-03-27 18:20 | XMS_ITS ---
Author Name [facility] History of Medication Use Medication Directions Dispensed Refills Start Date End Date Stat us tiZANidine (ZANAFLEX) 2 MG capsule 1 po hs 02/19/2023 active ergocalciferol (VITAMIN D2) capsule 74823 units TAKE 1 CAPSULE BY MOUTH ONE TIME PER WEEK 01/10/2023 active Kesimpta 20 MG/0.4ML SOAJ INJECT 1 PEN UNDER THE SKIN EVERY 28 DAYS 11/25/2022 active Allergies Allergen Reaction Severity Comment Documented Date Source Statu s AZITHROMYCIN RASH 06/03/2021 CTTHNEMG active Problems Problem Status Onset Date Problem Type Date of Resoluti on Source Multiple sclerosis (HCC) active EncounterDiagnosisAct CTTHNE MG
--- OUTSIDE RECORDS SUMMARY | 2025-03-27 18:20 | XMS_ITS | Clinical Summary ---
Author Organization [facility] Address [address] [place] [address] Phone Care Team Providers Care Hauling Contractor Name Role Phone Jet Davis MD Primary Care Provider [phone] Allergies Active Allergy Reactions Criticality Noted Date Comments Azithromycin Rash Low 06/03/2021 Medications cyanocobalamin/ folic acid (vitamin Z74-ddbgd acid) 1,000-400 mcg lozenge 3 Active metoprolol succinate (TOPROL-XL) 50 mg 24 hr tablet Take 1 tablet (50 mg total) by mouth 1 (one) time each day. 4 Active cholecalciferol (VITAMIN D-3) 50 mcg (2,000 unit) capsule Take 1 capsule (2,000 Units total) by mouth 1 (one) time each day. 30 each 11 5 09/02/19 26 Active baclofen (LIORESAL) 10 mg tablet 1 po in am and 1 1/2 hs 75 each 5 5 Active Ofatumumab (Kesimpta Pen) 20 mg/0.4 mL pen injector injectionIndica tions:Multiple sclerosis Inject 0.4 mL (20 mg total) under the skin every 28 (twenty-eigh t) days. 0.4 mL 5 5 Active dalfampridine 10 mg tablet extended release 12 hr msot 60 tablet 3 4 09/29/19 24 Discontinu ed(Reorder ) Encounters Date Type Department Care Team Description 12/26/2024 11:30 AM EDT Office Visit [facility] [address] [place] [address] Lien Gray PA Multiple sclerosis (CMS/HCC V24, CMS/HCC V28) (Primary Dx) from Last 3 Months Surgical History Surgery Date Site/Laterality Comments CHOLECYSTECTOMY PROCEDURE:CHOLECYSTECTOMY Medical History Medical History Date Comments Asthma DX:Asthma MS (multiple sclerosis) DX:MS (m ultiple sclerosis) (HCC) Family History Medical History Relation Name Comments [...] Description 04/13/2025 4:00 PM EDT Office Visit [facility] [address] [place] [address] Lien Gray PA [address] [place] [address] Health Maintenance Due Date Last Done Comments [...] 06/01/2022 Social Influencers of Health Screening 06/01/2022 Depression Screening 06/29/2024 COVID-19 Vaccine (4 - 2024-2 6 season) 2025 05/25/2021, 09/25/2020, 08/28/2020 Influenza Vaccine (#1) 2025 HIB Vaccines Aged [...] patient's age to complete this topic Insurance [facility] [[email or web address]] Care Teams Hauling Contractor Relationship Specialty Start Date End Date Jet Davis MD [address] [place] [address] [place] [phone] PCP - General Internal Medicine 05/20/21
== END 2025-03-27 16:59 | disposition home or self-care (01) ==
LOC: HO.HMCHD 16:21
PROVIDERS: PCP Family Medicine; Visit Provider Physician Assistant
DX: R00.2 Palpitations (principal); G35 Multiple sclerosis; K21.9 Gastro-esophageal reflux disease without esophagitis; M25.561 Pain in right knee

== ENCOUNTER 2025-04-01 13:40 | Outpatient (REF) | payer BC, SELFPAY ==
--- NOTE | ~2025-04-01 | XR_ITS ---
EXAMINATION: XR KNEE, RIGHT CLINICAL INFORMATION: M25.561 - Pain in right knee COMPARISON: X-ray of the left knee 08/18/2019. TECHNIQUE: Four views of the right knee. FINDINGS: There appears to bone demineralization.. There are patchy lucencies seen in the visualized bones. This includes lucencies seen in the tibia, fibula. No evidence of acute fracture or malalignment. Joint spaces are relatively maintained. No abnormal soft tissue calcification. No effusion. XR/XR knee RT 3V IMPRESSION: Patchy lucencies in the visualized bones. This of uncertain etiology. This could be related to the bone demineralization, bony lesions. Correlate with patient's clinical history, risk factors. Recommend bone scan evaluation. Electronically signed by: Prabhjot Camargo MD 04/03/2025 08:04 AM EDT
--- OUTSIDE RECORDS SUMMARY | 2025-04-01 13:43 | XMS_ITS | Clinical Summary ---
Author Organization [facility] Address [address] [place] [address] Care Team Providers Care Field Marketing Lead Name Role Phone Jet Davis MD Primary Care Provider [phone] Allergies Active Allergy Reactions Criticality Noted Date Comments Azithromycin Rash Low 06/03/2021 Medications Medication Sig Dispensed Refills Start Date End Date Status ergocalciferol (VITAMIN D2) capsule 76336 units TAKE 1 CAPSULE BY MOUTH ONE [...] age to complete this topic Care Teams Field Marketing Lead Relationship Specialty Start Date End Date Jet Davis MD [address] [place] [address] DR FILIBERTO [place] [phone] PCP - General Internal Medicine 05/20/21
--- OUTSIDE RECORDS SUMMARY | 2025-04-01 13:43 | XMS_ITS | Clinical Summary ---
Author Organization [facility] Address [address] [place] [address] Phone Care Team Providers Care Foundation Drill Operator Helper Name Role Phone Jet Davis MD Primary Care Provider [phone] Allergies Active Allergy Reactions Criticality Noted Date Comments Azithromycin Rash Low 06/03/2021 Medications cyanocobalamin/ folic acid (vitamin N79-ncity acid) 1,000-400 mcg lozenge 3 Active metoprolol [...] 3 4 09/29/19 24 Discontinu ed(Reorder ) Surgical History Surgery Date Site/Laterality Comments CHOLECYSTECTOMY PROCEDURE:CHOLECYSTECTOMY Medical History Medical History Date Comments Asthma DX:Asthma MS (multiple sclerosis) DX:MS (m ultiple sclerosis) ([facility]) Family History Medical History Relation Name Comments [...] Description 04/13/2025 4:00 PM EDT Office Visit [facility] [address] [place] [address] Lien Gray PA [address] [place] [address] Health Maintenance Due Date Last Done Comments Breast Cancer Screening 1965 Colorectal Cancer Screening: Colonoscopy 1965 DTaP,Tdap,and Td Vaccines (1 - Tdap) 12/21/1986 Hepatitis B Vaccines (1 of 3 - 19+ 3-dose series) 12/21/1986 Cervical Cancer Screening: P ap Smear 12/21/1988 Pneumococcal Vaccine: 50+ Years (1 of 1 - PCV) 12/21/2017 Zoster Vaccines (1 of 2) 12/21/2017 HIV Screening 06/01/2022 Hepatitis C Screening 06/01/2022 Social Influencers of Health Screening 06/01/2022 Depression Screening 06/29/2024 COVID-19 Vaccine (4 - 2024-2 6 season) 2025 05/25/2021, 09/25/2020, 08/28/2020 Influenza Vaccine (#1) 2025 RSV Immunization Adult Patients (1 - 1-dose 75+ series) 12/21/2042 HIB Vaccines Aged Out No longer eligi [...] patient's age to complete this topic Insurance [facility] Care Teams Foundation Drill Operator Helper Relationship Specialty Start Date End Date Jet Davis MD [address] [place] [address] Dr Claudia [place] [phone] PCP - General Internal Medicine 05/20/21
--- OUTSIDE RECORDS SUMMARY | 2025-04-01 13:43 | XMS_ITS | Patient Health Record ---
Author Organization [facility] Address [address] [place] [address] Care Team Providers Care Music Researcher Name Role Phone Ryan (RETIRED) Jet ORTIZ Primary Care Provider Unavailable Javier Ambriz Unavailable [phone] Allergies Allergen (clinical drug ingredient) Drug/Non Drug Allergy documented on EMR Reaction Allergy Type Onset Date Status erythromycin Erythromycin Unknown Drug Allergy A ctive Results Component Value Reference Range Notes Complete Blood Count Auto Di ff Reviewed date:06/02/2024 10:59:02 PM Interpretation: Performing Lab:[facility], [address] [place] [phone] Notes/Report: White Blood Count 4.1 4.8-10.8 X10*3/uL [...] Panel Reviewed date:06/02/2024 10:59:13 PM Interpretation: Performing Lab:[facility], [address] [place] [phone] Notes/Report: Bilirubin Total 0.5 0.0-1.0 mg/dL Bilirubin Direct 0.2 0.0-0.5 mg/dL Aspartate Amino Transferase 20 5-31 U/L Alanine Aminotransferase 13 0-31 U/L Total Protein 6.5 6.5-8.0 g/dL Albumin Level 4.1 3.5-5.0 g/dL Alkaline Phosphatase 57 39-117 U/L IRON PROFILE Reviewed date:06/02/2024 10:59:22 PM Interpretation: Performing Lab:[facility], [address] [place] [phone] Notes/Report: Iron 110 30-160 mcg/dL Total Iron Binding Capacity 247 228-428 mcg/d L Percent Iron Saturation 45 15-50 % Unsaturated Iron Binding 137 Ferritin Reviewed date:06/02/2024 10:59:31 PM Interpretation: Performing Lab:[facility], [address] [place] [phone] Notes/Report: Ferritin 329 10-250 ng/mL TSH reflex Free T4 Reviewed date:06/02/2024 11:06:18 PM Interpretation: Performing Lab:[facility], [address] [place] [phone] Notes/Report: TSH reflex Free T4 2.84 0.32-4.0 uIU/mL Immunoglobulin A Reviewed date:06/08/2024 01:42:02 PM Interpretation: Performing Lab:[facility], [address] [place] [phone] Notes/Report: Immunoglobulin A 178 47-310 mg/dL THIS TEST WAS PERFORMED AT: [facility] [address] [place] [phone] HANS TRINIDAD MD Transglutaminase Ab IgG Reviewed date:06/08/2024 01:42:21 PM Interpretation: Performing Lab:[facility], [address] [place] [phone] Notes/Report: Transglutaminase Ab IgG <1.0 Value Interpretation ----- <15.0 Antibody not detected > or = 15.0 Antibody detected THIS TEST WAS PERFORMED AT: [facility] [address] [place] [phone] HANS TRINIDAD MD Transglutaminase IgA Reviewed date:06/08/2024 01:42:30 PM Interpretation: Performing Lab:[facility], [address] [place] [phone] Notes/Report: Transglutaminase IgA 20.2 Value Interpretation ----- <15.0 Antibody not detected > or = 15.0 Antibody detected THIS TEST WAS PERFORMED AT: [facility] [address] [place] [phone] HANS TRINIDAD MD Gliadin Ab Panel Reviewed date:07/13/2024 11:46:22 PM Interpretation: Performing Lab:[facility], [address] [place] [phone] Notes/Report: Gliadin Deamidated IgA Ab 13.1 Value Interpretation ----- <15.0 Antibody not detected > or = 15.0 Antibody detected Gliadin Deamidated IgG Ab 4.5 Value Interpretation ----- <15.0 Antibody not detected > or = 15.0 Antibody detected THIS TEST WAS PERFORMED AT: [facility] [address] [place] [phone] HANS TRINIDAD MD Endomysial IgA rflx Titer Reviewed date:06/08/2024 01:42:47 PM Interpretation: Performing Lab:[facility], [address] [place] [phone] Notes/Report: Endomysial IgA Antibody Negative Negative THIS TEST WAS PERFORMED AT: [facility]/[address] [phone] PATTY LALA MD,PHD Endomysial Titer TNP Reason [...] MS Active Vitamin D (Ergocalciferol) 1.25 MG (55078 UT) TAKE 1 CAPSULE BY MOUTH ONE [...] Problem Status W/U Status Risk Notes Problem [id number] Encounter for screening for malignant neoplasm of colon (Z12.11) Active confirmed Problem Celiac disease (629234678) Celiac disease (K90.0) Active confirmed Problem Fatigue (09552267) Other fatigue (R53.83) Active confirmed Problem [id number] Preprocedural examination (Z01.818) Active confirmed Problem Irritable bowel (14770809) Irritable bowel (K58.9) Active confirmed Problem Elevated anti-tissue transglutaminase (tTG) IgA level (R76.8) Active confirmed Vital Signs Temperature 97.5 degrees Fahrenheit 06/28/2024 Blood pressure diastolic 01 mm Hg 06/28/2024 Height 66 in 06/28/2024 Blood pressure systolic 001 mm Hg 06/28/2024 Weight 139.4 lbs 06/28/2024 BMI 22.5 kg/m2 06/28/2024 Encounters Encounter Location Date Provider Diagnosis [facility] [address] [place] [address] 06/28/2024 Javier Ambriz Celiac disease K90.0 ; [...] Coverage End Date [facility] [address] [place], [place] [phone] [id number] BEHZADJAVON ESPINAL Self - patient is the insured Medical (General) History Medical History History ICD Code Asthma -mild--inhalers prn Denies RI,DM,CVA,,renal disease Describes a negative colonoscopy in [facility] at age 37 IBS Multiple sclerosis Celiac disease based on elevated TTG IgA of 207 in 12/2021 Screening colonoscopy in 02/2020 with rem oval of a nonadenomatous polyp orthostatic hypertension Surgical History Surgery Date(Month/Year) Cholecystectomy/umbilical hernia--Dr. Ernesto chacon 2011
--- OUTSIDE RECORDS SUMMARY | 2025-04-01 13:44 | XMS_ITS | Patient Health Record ---
Author Organization [facility] Address [address] [place] [address] Care Team Providers Care Pretzel Twister Name Role Phone Jet Davis MD Primary Care Provider Unavailab Tesfaye Connelly Unavailable [phone] Allergies Allergen (clinical drug ingredient) Drug/Non Drug [...] Risk Notes Problem Pain in left foot ([id number] 107) Pain in left foot (M79.672) Active confirmed Plan Of Treatment No Information Insurance Providers Payer Name Payer Address Payer Phone Subscriber Number Group Number Insured Name Patient Relationship to Insured Coverage Start Date Coverage End Date [facility] [address] [place] [address] [phone] [id number] Urvashi Martinez Self - patient is the insured Medical (General) History Medical History History ICD Code asthma Multiple sclerosis Chicken pox Surgical History Surgery Date(Month/Year) gall bladder 07/2012
== END 2025-04-01 13:41 | disposition home or self-care (01) ==
LOC: HO.HMGCX 13:40
PROVIDERS: PCP Physician Assistant; Visit Provider Physician Assistant
DX: M25.561 Pain in right knee (principal); K21.9 Gastro-esophageal reflux disease without esophagitis; R00.2 Palpitations; I89.0 Lymphedema, not elsewhere classified
CPT/HCPCS: 73562

== ENCOUNTER → 2025-04-01 13:43 | Outpatient (BNV) | payer BC, SELFPAY | PROVIDERS: PCP Physician Assistant; Visit Provider Radiology Diagnostic Ultrasound | DX: M25.561 Pain in right knee (principal) | CPT/HCPCS: 73562 ==

== ENCOUNTER → 2025-05-19 09:46 | Outpatient (REF) | payer BC, SELFPAY ==
--- NOTE | ~2025-05-19 | NM_ITS ---
EXAMINATION: NM BONE SCAN LIMITED HISTORY: M25.561 - Pain in right knee. TECHNIQUE: A bone scan of the pelvis and bilateral lower extremities was performed following the intravenous administration of 22 mCi technetium 99m-MDP. COMPARISON: Correlation is made with plain films of the right knee dated 04/01/2025. FINDINGS: There is mild increased uptake at the knees, left greater than right, which is likely degenerative in nature. Degenerative uptake is also seen in the region of the right calcaneus and left midfoot. NM/NM bone scan limited area IMPRESSION: Probable degenerative uptake at the knees. This does not explain the osteopenia noted on plain films. Diffuse patchy osteopenia could represent multiple myeloma, which is occult on bone scan. Clinical and laboratory correlation is required. Electronically signed by: Javier Cevallos MD 05/19/2025 01:57 PM EST
--- OUTSIDE RECORDS SUMMARY | 2025-05-19 10:30 | XMS_ITS | Patient Health Record ---
Author Organization [facility] Address [address] [place] [address] Care Team Providers Care Product Builder Name Role Phone Jet Davis MD Primary Care Provider Unavailab Tesfaye Connelly Unavailable [phone] Allergies Allergen (clinical drug ingredient) Drug/Non Drug [...] Risk Notes Problem Pain in left foot ([id number] 107) Pain in left foot (M79.672) Active confirmed Plan Of Treatment No Information Insurance Providers Payer Name Payer Address Payer Phone Subscriber Number Group Number Insured Name Patient Relationship to Insured Coverage Start Date Coverage End Date [facility] [address] [place] [address] [phone] [id number] Urvashi Martinez Self - patient is the insured Medical (General) History Medical History History ICD Code asthma Multiple sclerosis Chicken pox Surgical History Surgery Date(Month/Year) gall bladder 07/2012
--- OUTSIDE RECORDS SUMMARY | 2025-05-19 10:30 | XMS_ITS | Clinical Summary ---
Author Organization [facility] Address [address] [place] [address] Care Team Providers Care Reading Teacher Name Role Phone Jet Davis MD Primary Care Provider [phone] Allergies Active Allergy Reactions Criticality Noted Date Comments Azithromycin Rash Low 06/03/2021 Medications Medication Sig Dispensed Refills Start Date End Date Status ergocalciferol (VITAMIN D2) capsule 14503 units TAKE 1 CAPSULE BY MOUTH ONE [...] age to complete this topic Care Teams Reading Teacher Relationship Specialty Start Date End Date Jet Davis MD [address] [place] [address] DR FILIBERTO [place] [phone] PCP - General Internal Medicine 05/20/21
--- OUTSIDE RECORDS SUMMARY | 2025-05-19 10:30 | XMS_ITS | Clinical Summary ---
Author Organization [facility] Address [address] [place] [address] Phone Care Team Providers Care Adjunct Faculty Instructor Name Role Phone Jet Davis MD Primary Care Provider Allergies Active Allergy Reactions Criticality Noted Date Comments Azithromycin Rash Low 06/03/2021 Medications cyanocobalamin/ folic acid (vitamin B22-fhqud acid) 1,000-400 mcg lozenge 3 Active metoprolol [...] MS (multiple sclerosis) DX:MS (m ultiple sclerosis) ([facility]) Family History Medical History Relation Name Comments [...] Care Team (Late st Contact Info) Description 06/01/2025 4:00 PM EST Office Visit [facility] [address] [place] [phone] Lilo Romo MD [address] [place] [address] Health Maintenance Due Date Last Done Comments [...] patient's age to complete this topic Insurance [facility] Care Teams Adjunct Faculty Instructor Relationship Specialty Start Date End Date Jet Daivs MD [address] [place] [address] Dr Claudia [place] [phone] PCP - General Internal Medicine 05/20/21
--- OUTSIDE RECORDS SUMMARY | 2025-05-19 10:30 | XMS_ITS | Patient Health Record ---
Author Organization [facility] Address [address] [place] [address] Care Team Providers Care Human Resources Leader Name Role Phone Ryan (RETIRED) Jet ORTIZ Primary Care Provider Unavailable Javier Ambriz Unavailable [phone] Allergies Allergen (clinical drug ingredient) Drug/Non Drug Allergy documented on EMR Reaction Allergy Type Onset Date Status erythromycin Erythromycin Unknown Drug Allergy A ctive Results Component Value Reference Range Flag Notes Complete Blood Count Auto Di ff Reviewed date:06/02/2024 10:59:02 PM Interpretation: Performing Lab:[facility], [address] [place] [phone] Notes/Report: White Blood Count 4.1 4.8-10.8 X10*3/uL L Red Blood Count 3.70 4.20-5.50 X10*6/uL L Hemoglobin 11.8 12.0-16.0 g/dl L Hematocrit 35.9 37.0-47.0 % L Mean Corpuscular Volume 97.0 80.0-98.0 fL N Mean Corpuscular Hemoglobin 31.9 27.0-33.0 pg N Mean Corpuscular HGB Conc 32.9 31.0-35.0 g/dl N Red Cell Distribution Width 12.7 11.0-16.0 % N Platelet Count 255 160-400 X10*3/uL N Mean Platelet Volume 10.2 9.4-12.3 fL N Neutrophils Percent Auto 52.4 45-73 % N Imm Gran Pct Auto 0.2 0.0-0.4 % N Lymphocytes Percent Auto 34.1 20-40 % N Monocytes Percent Auto 9.2 2-11 % N Eosinophils Percent Auto 2.9 0-4 % N Basophils Percent Auto 1.2 0-2 % N NRBC Pct Auto 0.0 0.0-0.2 /100WBC N Neutrophils Absolute Auto 2.2 2.0-8.3 x10*3/uL N Imm Gran Abs Auto 0.01 0.00-0.03 X10*3/uL N Lymphocytes Absolute Auto 1.4 1.2-4.9 X10*3/uL N Monocytes Absolute Auto 0.4 0.1-1.2 X10*3/uL N Eosinophils Absolute Auto 0.1 0.0-0.4 X10*3/uL N Basophils Absolute Auto 0.1 0.0-0.2 X10*3/uL N NRBC Abs Auto 0.000 0.0-0.012 X10*3/uL N Liver Panel Reviewed date:06/02/2024 10:59:13 PM Interpretation: Performing Lab:[address] [address] Notes/Report: Bilirubin Total 0.5 0.0-1.0 mg/dL N Bilirubin Direct 0.2 0.0-0.5 mg/dL N Aspartate Amino Transferase 20 5-31 U/L N Alanine Aminotransferase 13 0-31 U/L N Total Protein 6.5 6.5-8.0 g/dL N Albumin Level 4.1 3.5-5.0 g/dL N Alkaline Phosphatase 57 39-117 U/L N IRON PROFILE Reviewed date:06/02/2024 10:59:22 PM Interpretation: Performing Lab:[facility], [address] [place] [phone] Notes/Report: Iron 110 30-160 mcg/dL N Total Iron Binding Capacity 247 228-428 mcg/dL N Percent Iron Saturation 45 15-50 % N Unsaturated Iron Binding 137 Ferritin Reviewed date:06/02/2024 10:59:31 PM Interpretation: Performing Lab:[address] [phone] Notes/Report: Ferritin 329 10-250 ng/mL H TSH reflex Free T4 Reviewed date:06/02/2024 11:06:18 PM Interpretation: Performing Lab:[address] [phone] Notes/Report: TSH reflex Free T4 2.84 0.32-4.0 uIU/mL N Immunoglobulin A Reviewed date:06/08/2024 01:42:02 PM Interpretation: Performing Lab:[facility], [address] [place] [phone] Notes/Report: Immunoglobulin A 178 47-310 mg/dL N THIS TEST WAS PERFORMED AT: [facility] [address] [place] [phone] HANS TRINIDAD MD Transglutaminase Ab IgG Reviewed date:06/08/2024 01:42:21 PM Interpretation: Performing Lab:[facility], [address] [place] [phone] Notes/Report: Transglutaminase Ab IgG <1.0 N Value Interpretation ----- <15.0 Antibody not detected > or = 15.0 Antibody detected THIS TEST WAS PERFORMED AT: [facility] [address] [place] [phone] HANS TRINIDAD MD Transglutaminase IgA Reviewed date:06/08/2024 01:42:30 PM Interpretation: Performing Lab:[facility], [address] [place] [phone] Notes/Report: Transglutaminase IgA 20.2 A Value Interpretation ----- <15.0 Antibody not detected > or = 15.0 Antibody detected THIS TEST WAS PERFORMED AT: [facility] [address] [place] [phone] HANS TRINIDAD MD Gliadin Ab Panel Reviewed date:07/13/2024 11:46:22 PM Interpretation: Performing Lab:[facility], [address] [place] [phone] Notes/Report: Gliadin Deamidated IgA Ab 13.1 N Value Interpretation ----- <15.0 Antibody not detected > or = 15.0 Antibody detected Gliadin Deamidated IgG Ab 4.5 N Value Interpretation ----- <15.0 Antibody not detected > or = 15.0 Antibody detected THIS TEST WAS PERFORMED AT: [facility] [address] [place] [phone] HANS TRINIDAD MD Endomysial IgA rflx Titer Reviewed date:06/08/2024 01:42:47 PM Interpretation: Performing Lab:[facility], [address] [place] [phone] Notes/Report: Endomysial IgA Antibody Negative Negative THIS TEST WAS PERFORMED AT: [facility]/[address] [address] PATTY LALA MD,PHD Endomysial Titer TNP Reason For Referral No Information Medications Medication SIG (Take, Route, Frequency, Duration) Notes Start Date End Date Status Baclofen 20 MG/20ML Solution 1 mL as needed Orally Once a day Active Metoprolol Succinate 50 MG Capsule ER 24 Hour Sprinkle 1 capsule Orally Once a day Active B Complex - Tablet as directed Orally Active Vitamin C 500 MG Capsule as directed Orally Active Kesimpta 20 MG/0.4ML Solution Auto-injector Subcutaneous; Duration: 30 Monthly for MS Active Vitamin D (Ergocalciferol) 1.25 MG (25618 UT) Capsule TAKE 1 CAPSULE BY MOUTH ONE TIME PER WEEK Oral; Duration: 84 Active Immunizations Vaccine Route Administration Date Status Comme nts Influenza Unknown 12/16/2023 Refused Social History Tobacco Use: Social History Observation Description Date Details (start date - stop date) Never Smoker NA - NA Social History Drugs/Alcohol: Social Info Question Answer Notes Alcohol Screen Did you have a drink containing alcohol in the past year? Yes How often did you have a drink containing alcohol in the past year? 2 to 4 times a month (2 points) How many drinks did you have on a typical day when you were drinking in the past year? 1 or 2 drinks (0 point) How often did you have 6 or more drinks on one occasion in the past year? 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 Section Notes: Nonsmoker; no sig alcohol Nonsmoker; no sig alcohol Nonsmoker; no sig alcohol Problems Problem Type SNOMED Code ICD Code Onset Dates Problem Status W/U Status Risk Notes Problem Screening for malignant neoplasm of colon (560603001) Encounter for screening for malignant neoplasm of colon (Z12.11) Active confirmed Problem Celiac disease (517872895) Celiac disease (K90.0) Active confirmed Problem Fatigue (64800645) Other fatigue (R53.83) Active confirmed Problem Preprocedural examination (780721758098275 ) Preprocedural examination (Z01.818) Active confirmed Problem Irritable bowel (94168111) Irritable bowel (K58.9) Active confirmed Problem Elevated anti-tissue transglutaminase (tTG) IgA level (R76.8) Active confirmed Vital Signs Temperature 97.5 degrees Fahrenheit 06/28/2024 Blood pressure diastolic 01 mm Hg 06/28/2024 Height 66 in 06/28/2024 Blood pressure systolic 001 mm Hg 06/28/2024 Weight 139.4 lbs 06/28/2024 BMI 22.5 kg/m2 06/28/2024 Encounters Encounter Location Date Provider Diagnosis [facility] [address] [place] [address] 06/28/2024 Javier Ambriz Celiac disease K90.0 ; [...] Insured Coverage Start Date Coverage End Date [facility] [address] [place], [place] [id number] MCKENNA JAVON Self - patient is the insured Medical (General) History Medical History History ICD Code Asthma -mild--inhalers prn Denies NM,DM,CVA,,renal disease Describes a negative colonoscopy in [facility] at age 37 IBS Multiple sclerosis Celiac disease based on elevated TTG IgA of 207 in 12/2021 Screening colonoscopy in 02/2020 with rem oval of a nonadenomatous polyp orthostatic hypertension Surgical History Surgery Date(Month/Year) Cholecystectomy/umbilical hernia--Dr. Ernesto chacon 2011
== END ==
LOC: HO.NUCMED 09:46
PROVIDERS: PCP Physician Assistant; Visit Provider Physician Assistant
DX: M25.561 Pain in right knee (principal); R93.6 Abnormal findings on diagnostic imaging of limbs
CPT/HCPCS: 78300; A9503

== ENCOUNTER → 2025-05-19 09:48 | Outpatient (BNV) | payer BC, SELFPAY | PROVIDERS: PCP Physician Assistant; Visit Provider Radiology Diagnostic Radiology | DX: M85.861 Other specified disorders of bone density and structure, right lower leg (principal) | CPT/HCPCS: 78300 ==

== ENCOUNTER 2025-05-23 07:24 | Outpatient (REF) | payer BC, SELFPAY ==
--- OUTSIDE RECORDS SUMMARY | 2025-05-23 07:26 | XMS_ITS | Clinical Summary ---
Author Organization [facility] Address [address] [place] [address] Care Team Providers Care Hog Cutter Name Role Phone Jet Davis MD Primary Care Provider [phone] Allergies Active Allergy Reactions Criticality Noted Date Comments Azithromycin Rash Low 06/03/2021 Medications Medication Sig Dispensed Refills Start Date End Date Status ergocalciferol (VITAMIN D2) capsule 81659 units TAKE 1 CAPSULE BY MOUTH ONE [...] age to complete this topic Care Teams Hog Cutter Relationship Specialty Start Date End Date Jet Davis MD [address] [place] [address] DR FILIBERTO [place] [phone] PCP - General Internal Medicine 05/20/21
--- OUTSIDE RECORDS SUMMARY | 2025-05-23 07:26 | XMS_ITS | Clinical Summary ---
Author Organization [facility] Address [address] [place] [address] Phone Care Team Providers Care Contact Lens Molder Name Role Phone Jet Davis MD Primary Care Provider Allergies Active Allergy Reactions Criticality Noted Date Comments Azithromycin Rash Low 06/03/2021 Medications cyanocobalamin/ folic acid (vitamin X31-lsdcg acid) 1,000-400 mcg lozenge 3 Active metoprolol [...] MS (multiple sclerosis) DX:MS (m ultiple sclerosis) ([facility]) Family History Medical History Relation Name Comments [...] Description 06/01/2025 4:00 PM EST Office Visit [facility] [address] [facility] [address] [place] [phone] Lilo Romo MD [address] [place] [address] Health Maintenance Due Date Last Done Comments [...] patient's age to complete this topic Insurance [facility] Care Teams Contact Lens Molder Relationship Specialty Start Date End Date Jet Davis MD [address] [place] [address] Dr Claudia [place] [phone] PCP - General Internal Medicine 05/20/21
[2025-05-23 10:09] LABS: MANUAL DIFF FLAG NO
[2025-05-23 10:26] LABS: Red Blood Count 3.82 X10*6/uL (4.20-5.50); White Blood Count 4.7 X10*3/uL (4.8-10.8)
[2025-05-23 10:27] LABS: Hematocrit 37.0 % (37.0-47.0); Hemoglobin 12.3 g/dl (12.0-16.0); Imm Gran Abs Auto 0.01 X10*3/uL (0.00-0.03); Imm Gran Pct Auto 0.2 % (0.0-0.4); Lymphocytes Absolute Auto 1.9 X10*3/uL (1.2-4.9); Mean Corpuscular HGB Conc 33.2 g/dl (31.0-35.0); Mean Corpuscular Hemoglobin 32.2 pg (27.0-33.0); Mean Corpuscular Volume 96.9 fL (80.0-98.0); NRBC Abs Auto 0.000 X10*3/uL (0.0-0.012); NRBC Pct Auto 0.0 /100WBC (0.0-0.2); Platelet Count 203 X10*3/uL (160-400)
[2025-05-23 10:55] LABS: Alanine Aminotransferase 29 U/L (0-31); Albumin Level 4.7 g/dL (3.5-5.0); Alkaline Phosphatase 50 U/L (39-117); Anion Gap 11 (12-20); Aspartate Amino Transferase 32 U/L (5-31); Blood Urea Nitrogen 13 mg/dL (9-16); Calcium 9.2 mg/dL (8.4-10.2); Carbon Dioxide 29 mmol/L (22-29); Chloride 106 mmol/L (96-108); Cholesterol 151 mg/dL (<200); Estimated Glomerular Filt Rate > 60; HDL Cholesterol 79 mg/dL (>40); Potassium 3.8 mmol/L (3.3-5.1); Sodium 142 mmol/L (135-145); Total Protein 6.8 g/dL (6.5-8.0); Triglycerides 51 mg/dL (<150)
[2025-05-23 11:48] LABS: Free T4 (Free Thyroxine) 1.01 ng/dL (0.71-1.85)
== END 2025-05-23 07:25 | disposition home or self-care (01) ==
LOC: HO.10HDL 07:24
PROVIDERS: Visit Provider Physician Assistant
DX: K21.9 Gastro-esophageal reflux disease without esophagitis (principal); G35.D Multiple sclerosis, unspecified; R00.2 Palpitations; I89.0 Lymphedema, not elsewhere classified; Z13.6 Encounter for screening for cardiovascular disorders
CPT/HCPCS: 36415; 80048; 80061; 80076; 84439; 84443; 85025

== ENCOUNTER 2025-06-12 11:20 | Outpatient (REF) | payer BC, SELFPAY ==
[2025-06-12 14:02] LABS: Alkaline Phosphatase 57 U/L (39-117); Gamma Glutamyl Transpeptidase 14 U/L (7-33)
== END 2025-06-12 11:21 | disposition home or self-care (01) ==
LOC: HO.HMGCLDS 11:20
PROVIDERS: PCP Physician Assistant; Visit Provider Physician Assistant
DX: R94.8 Abnormal results of function studies of other organs and systems (principal); R93.6 Abnormal findings on diagnostic imaging of limbs; M25.561 Pain in right knee; R93.7 Abnormal findings on diagnostic imaging of other parts of musculoskeletal system
CPT/HCPCS: 82232; 82784; 82977; 83615; 83883; 84075; 84165; 86140; 86335

== ENCOUNTER 2025-06-26 08:50 | Outpatient (REF) | payer BC, SELFPAY ==
--- NOTE | ~2025-06-26 | MM_ITS ---
EXAMINATION: MM SCREENING DIGITAL BREAST TOMOSYNTHESIS, BILATERAL CLINICAL INFORMATION: Screening. Asymptomatic. COMPARISON: Mammography: Comparison is made with available priors TECHNIQUE: Digital breast mammography with tomosynthesis is performed in both the craniocaudal and mediolateral oblique views along with computer-aided detection (CAD). FINDINGS: There are scattered areas of fibroglandular density. There are no significant masses, abnormal calcifications, or other abnormalities. MM/MM tomosynthesis screening BI IMPRESSION: No mammographic evidence of malignancy. ASSESSMENT: BI-RADS Category 1: Negative RECOMMENDATION: Routine annual mammography screening. 1 year F/U This examination should not preclude the clinical evaluation of a suspicious palpable abnormality. This patient's information was entered into a reminder system with a target due date for their next mammogram. Electronically signed by: Stephanie Boyce DO 06/28/2025 10:12 AM SANTO
--- OUTSIDE RECORDS SUMMARY | 2025-06-26 08:57 | XMS_ITS | Clinical Summary ---
Author Organization [facility] Prior to 11/26/[address] [place] [address] Care Team Providers Care Rubber Goods Cutter Finisher Name Role Phone Jet Davis MD Primary Care Provider [phone] Allergies Active Allergy Reactions Criticality Noted Date Comments Azithromycin Rash Low 06/03/2021 Medications Medication Sig Dispensed Refills Start Date End Date Status ergocalciferol (VITAMIN D2) capsule 57150 units TAKE 1 CAPSULE BY MOUTH ONE [...] age to complete this topic Care Teams Rubber Goods Cutter Finisher Relationship Specialty Start Date End Date Jet Davis MD [address] [place] [address] [place] [address] PCP - General Internal Medicine 05/20/21
--- OUTSIDE RECORDS SUMMARY | 2025-06-26 08:57 | XMS_ITS | Patient Health Record ---
Author Organization [facility] Address [address] [place] [address] Care Team Providers Care Warehousing Technician Name Role Phone Ryan (RETIRED) Jet ORTIZ Primary Care Provider Unavailable Javier Ambriz Unavailable [phone] Allergies Allergen (clinical drug ingredient) Drug/Non Drug Allergy documented on EMR Reaction Allergy Type Onset Date Status erythromycin Erythromycin Unknown Drug Allergy A ctive Reason For Referral No Information Medications Medication [...] MS Active Vitamin D (Ergocalciferol) 1.25 MG (67411 UT) Capsule TAKE 1 CAPSULE BY MOUTH [...] Problem Screening for malignant neoplasm of colon (268778125) Encounter for screening for malignant neoplasm of colon (Z12.11) Active confirmed Problem Celiac disease (966992767) Celiac disease (K90.0) Active confirmed Problem Fatigue (39766547) Other fatigue (R53.83) Active confirmed Problem Preprocedural examination (401195974938350 ) Preprocedural examination (Z01.818) Active confirmed Problem Irritable bowel (15592564) Irritable bowel (K58.9) Active confirmed Problem Elevated anti-tissue transglutaminase (tTG) IgA level (R76.8) Active confirmed Vital Signs Temperature 97.5 degrees Fahrenheit 06/28/2024 Blood pressure diastolic 01 mm Hg 06/28/2024 Height 66 in 06/28/2024 Blood pressure systolic 001 mm Hg 06/28/2024 Weight 139.4 lbs 06/28/2024 BMI 22.5 kg/m2 06/28/2024 Encounters Encounter Location Date Provider Diagnosis [facility] [address] [place] [address] 06/28/2024 Javier Ambriz Celiac disease K90.0 ; [...] Insured Coverage Start Date Coverage End Date [facility] [address] [place], [place] [id number] JAVON ANDRES Self - patient is the insured Medical (General) History Medical History History ICD Code Asthma -mild--inhalers prn Denies [place],DM,CVA,,renal disease Describes a negative colonoscopy in [facility] at age 37 IBS Multiple sclerosis Celiac disease based on elevated TTG IgA of 207 in 12/2021 Screening colonoscopy in 02/2020 with rem oval of a nonadenomatous polyp orthostatic hypertension Surgical History Surgery Date(Month/Year) Cholecystectomy/umbilical hernia--Dr. Ernesto chacon 2011
--- OUTSIDE RECORDS SUMMARY | 2025-06-26 08:57 | XMS_ITS | Clinical Summary ---
Author Organization [address] [facility] Address [address] [place] [address] Phone Care Team Providers Care Director Targeted Marketing Name Role Phone Jet Davis MD Primary Care Provider Allergies Active Allergy Reactions Criticality Noted Date Comments Azithromycin Rash Low 06/03/2021 Medications cyanocobalamin/ folic acid (vitamin N04-krtul acid) 1,000-400 mcg lozenge 3 Active metoprolol [...] 3 4 09/29/19 24 Discontinu ed(Reorder ) Ofatumumab (Kesimpta Pen) 20 mg/0.4 mL pen injector injectionIndica tions:Multiple sclerosis Inject 0.4 mL (20 mg total) under the skin every 28 (twenty-eigh t) days. 0.4 mL 5 5 06/19/20 25 Discontinu ed(Reorder ) Encounters Date Type Department Care Team Description 06/01/2025 4:00 PM EST Office Visit [facility] [address] [facility] [address] [place] [address] Lilo Romo MD Multiple sclerosis (Primary Dx); High risk medication use; Spasticity; Gait abnormality from Last 3 Months Surgical History Surgery [...] on file Sexual Orientation Not on file Last Filed Vital Signs Vital Sign Reading Time Taken Comments Blood Pressure 123/62 06/01/2025 4:03 PM EST Pulse 62 06/01/2025 4:03 PM EST Temperature 36.9 C (98.4 F) 12/26/2024 11:35 AM EDT Respiratory Rate - - Oxygen Saturation 97% 06/01/2025 4:03 PM EST Inhaled Oxygen Concentration - - Weight 70.3 kg (155 lb) 06/01/2025 4:03 PM EST Height 167.6 cm (5' 6 ) 12/26/2024 11:35 AM EDT Body Mass Index 25.02 12/26/2024 11:35 AM EDT Plan of Treatment Upcoming Encounters Date Type Department Care Team (Late st Contact Info) Description 09/04/2025 4:00 PM EDT Office Visit [facility] [address] [facility] [address] [place] [address] Lilo Romo MD [address] [place] [address] Health Maintenance Due Date Last Done Comments [...] patient's age to complete this topic Insurance [facility] Care Teams Director Targeted Marketing Relationship Specialty Start Date End Date Jet Davis MD [address] [place] [address] [place] [address] PCP - General Internal Medicine 05/20/21
--- OUTSIDE RECORDS SUMMARY | 2025-06-26 08:58 | XMS_ITS | Patient Health Record ---
Author Organization [facility] Address [address] [facility] [place] [address] Care Team Providers Care Wet Washer Machine Name Role Phone Jet Davis MD Primary Care Provider Unavailab Tesfaye Connelly Unavailable [phone] Allergies Allergen (clinical drug ingredient) Drug/Non Drug [...] Risk Notes Problem Pain in left foot (503207221506 107) Pain in left foot (M79.672) Active confirmed Plan Of Treatment No Information Insurance Providers Payer Name Payer Address Payer Phone Subscriber Number Group Number Insured Name Patient Relationship to Insured Coverage Start Date Coverage End Date [facility] [address] [place] [address] [phone] [id number] Urvashi Martinez Self - patient is the insured Medical (General) History Medical History History ICD Code asthma Multiple sclerosis Chicken pox Surgical History Surgery Date(Month/Year) gall bladder 07/2012
== END 2025-06-26 08:51 | disposition home or self-care (01) ==
LOC: HO.MAMMO 08:50
PROVIDERS: PCP Physician Assistant; Visit Provider Family Medicine
DX: Z12.31 Encounter for screening mammogram for malignant neoplasm of breast (principal)
CPT/HCPCS: 77063; 77067

== ENCOUNTER → 2025-06-26 09:00 | Outpatient (BNV) | payer BC, SELFPAY | PROVIDERS: PCP Physician Assistant; Visit Provider Internal Medicine | DX: Z12.31 Encounter for screening mammogram for malignant neoplasm of breast (principal) | CPT/HCPCS: 77063; 77067 ==